=== PATIENT | male | born 1930 | race Caucasian/White ===

== ENCOUNTER 2016-05-29 13:55 | Inpatient (IN) | payer MEDICARE, OTHER ==
[2016-05-29] MEDS ORDERED: SODIUM CHLORIDE 0.9% 1,000 ML IV STA ×2 (14:06)
--- NOTE | 2016-05-29 14:21 | ED ---
General Adult HPI - General Chief complaint: Altered Mental Status Stated complaint: confusion Time Seen by Provider: 05/29/16 14:06 Source: family Mode of arrival: wheelchair Limitations: altered mental status - Related Data Home Medications Medication Instructions Recorded Confirmed Donepezil [Aricept] 5 mg PO HS 02/03/16 05/29/16 Ergocalciferol (Vitamin D2) 50,000 unit PO APARICIO 02/03/16 05/29/16 [Drisdol] Levothyroxine Sodium [Levo-T] 75 mcg PO DAILY 02/03/16 05/29/16 HYDROcodone/APAP 5-325MG [[place] 1 tab PO Q6HR PRN 02/22/16 05/29/16 5-325] Hydroxyurea [Hydrea] 500 mg PO W/SUPPER 02/22/16 05/29/16 Lisinopril [Zestril] 2.5 mg PO DAILY 02/22/16 05/29/16 Warfarin Sodium 6 mg PO MOTUWETHFRSA 02/22/16 05/29/16 Furosemide [Lasix] 40 mg PO DAILY 03/27/16 05/29/16 Potassium Chloride ER [K-Dur 20] 20 meq PO DAILY 03/27/16 05/29/16 Albuterol Nebulized [Ventolin 2.5 mg INHALATION RT-QID 05/29/16 05/29/16 Nebulized] Baclofen [Lioresal] 10 mg PO BID PRN 05/29/16 05/29/16 Budesonide [Pulmicort] 1 mg INHALATION RT-BID 05/29/16 05/29/16 Carvedilol [Coreg] 6.25 mg PO BID 05/29/16 05/29/16 Febuxostat [Uloric] 40 mg PO DAILY 05/29/16 05/29/16 Mirtazapine [Remeron] 15 mg PO HS 05/29/16 05/29/16 SILVER sulfADIAZINE CREAM 1 applic TOPICAL BID PRN 05/29/16 05/29/16 [Silvadene Cream] traMADol HCL [Ultram] 50 mg PO TID PRN 05/29/16 05/29/16 Previous Rx's Medication Instructions Recorded Famotidine [Pepcid] 20 mg PO DAILY #20 tablet 02/25/16 Allergies Allergy/AdvReac Type Severity Reaction Status Date / Time No Known Allergies Allergy Verified 05/29/16 14:52 Review of Systems ROS Statement: Those systems with pertinent positive or pertinent negative responses have been documented in the HPI. ROS Other: All systems not noted in ROS Statement are negative. Past Medical History Past Medical History: Atrial Fibrillation, Blood Disorder, Heart Failure, Hypertension, Myocardial Infarction ([place]), Thyroid Disorder Additional Past Medical History / Comment(s): blood disorder leukocytosis undefined myelomo ascbestos elevated wbc , patient has one kidney, prostate CA and removal of prostate, testicle removal Last Myocardial Infarction Date:: 1994 History of Any Multi-Drug Resistant Organisms: None Reported Additional Past Surgical History / Comment(s): nephrectomy thyroidectomy Past Anesthesia/Blood Transfusion Reactions: No Reported Reaction Past Psychological History: No Psychological Hx Reported Smoking Status: Never smoker Past Alcohol Use History: None Reported Additional Past Alcohol Use History / Comment(s): Occasionally smokes a cigar. Drinks alcohol on occasion. Past Drug Use History: None Reported - Past Family History Mother Family Medical History: Cancer Additional Family Medical History / Comment(s): Breast CA Father Family Medical History: Coronary Artery Disease (CAD) Sister(s) Family Medical History: Blood Disorder, Cancer Additional Family Medical History / Comment(s): Breast CA and blood CA General Exam Limitations: altered mental status Course Vital Signs 05/29/16 05/29/16 05/29/16 14:01 14:14 15:26 Temperature 97.4 F L Pulse Rate 77 72 72 Respiratory 20 28 H 20 Rate Blood Pressure 151/71 120/82 O2 Sat by Pulse 94 L 100 100 Oximetry 05/29/16 05/29/16 05/29/16 15:27 15:33 15:55 Temperature Pulse Rate 74 74 80 Respiratory Rate Blood Pressure O2 Sat by Pulse Oximetry EKG Findings - EKG Comments: EKG Findings:: EKG shows undetermined rhythm rate of 74, QRS raking, QTC 463 Medical Decision Making - Medical Decision Making 86 now ER for evaluation of weakness altered mental status, patient with probable UTI will treated with appropriate antibiotics, complicated fluid situation with both CHF and renal failure and dehydration, patient will be admitted for cardiac evaluation - Lab Data Result diagrams: 05/29/16 14:35 05/29/16 14:35 Lab Results 05/29/16 05/29/16 05/29/16 Range/Units 14:35 14:35 14:35 WBC 42.3 H* (3.8-10.6) k/uL RBC 2.19 L (4.30-5.90) m/uL Hgb 8.5 L (13.0-17.5) gm/dL Hct 27.5 L (39.0-53.0) % MCV 125.9 H (80.0-100.0) fL MCH 38.7 H (25.0-35.0) pg MCHC 30.7 L (31.0-37.0) g/dL RDW 18.1 H (11.5-15.5) % Plt Count 136 L (150-450) k/uL Neutrophils % (Manual) 73.0 % Band Neutrophils % 15.5 % Lymphocytes % (Manual) 3.5 % Monocytes % (Manual) 8.0 % Neutrophils # (Manual) 37.4 H (1.3-7.7) k/uL Lymphocytes # (Manual) 1.5 (1.0-4.8) k/uL Monocytes # (Manual) 3.4 H (0-1.0) k/uL Nucleated RBCs 0 (0-0) /100 WBC Manual Slide Review Performed Hypochromasia Slight Anisocytosis Slight Macrocytosis Marked PT (9.0-12.0) sec INR (<1.1) APTT (22.0-30.0) sec Sodium 144 (137-145) mmol/L Potassium 4.7 (3.5-5.1) mmol/L Chloride 110 H (98-107) mmol/L Carbon Dioxide 22 (22-30) mmol/L Anion Gap 12 mmol/L BUN 26 H (9-20) mg/dL Creatinine 2.20 H (0.66-1.25) mg/dL Est GFR (MDRD) Af Amer 35 (>60 ml/min/1.73 sqM) Est GFR (MDRD) Non-Af 29 (>60 ml/min/1.73 sqM) Glucose 99 (74-99) mg/dL Calcium 8.9 (8.4-10.2) mg/dL Phosphorus 4.5 (2.5-4.5) mg/dL Magnesium 1.7 (1.6-2.3) mg/dL Total Bilirubin 0.7 (0.2-1.3) mg/dL AST 15 L (17-59) U/L ALT 18 L (21-72) U/L Alkaline Phosphatase 120 (38-126) U/L Total Creatine Kinase <20 L (55-170) U/L CK-MB (CK-2) 0.5 (0.0-2.4) ng/mL CK-MB (CK-2) Rel Index 0.0 Troponin I 0.012 (0.000-0.034) ng/mL NT-Pro-B Natriuret Pep pg/mL Total Protein 6.2 L (6.3-8.2) g/dL Albumin 3.5 (3.5-5.0) g/dL Urine Color Urine Appearance (Clear) Urine pH (5.0-8.0) Ur Specific [place] (1.001-1.035) Urine Protein (Negative) Urine Glucose (UA) (Negative) Urine Ketones (Negative) Urine Blood (Negative) Urine Nitrate (Negative) Urine Bilirubin (Negative) Urine Urobilinogen (<2.0) mg/dL Ur Leukocyte Esterase (Negative) Urine RBC (0-5) /hpf Urine WBC (0-5) /hpf Amorphous Sediment (None) /hpf Hyaline Casts (0-2) /lpf Urine Mucus (None) /hpf Influenza Type A RNA (Not Detectd) Influenza Type B (PCR) (Not Detectd) 05/29/16 05/29/16 05/29/16 Range/Units 14:35 14:35 14:35 WBC (3.8-10.6) k/uL RBC (4.30-5.90) m/uL Hgb (13.0-17.5) gm/dL Hct (39.0-53.0) % MCV (80.0-100.0) fL MCH (25.0-35.0) pg MCHC (31.0-37.0) g/dL RDW (11.5-15.5) % Plt Count (150-450) k/uL Neutrophils % (Manual) % Band Neutrophils % % Lymphocytes % (Manual) % Monocytes % (Manual) % Neutrophils # (Manual) (1.3-7.7) k/uL Lymphocytes # (Manual) (1.0-4.8) k/uL Monocytes # (Manual) (0-1.0) k/uL Nucleated RBCs (0-0) /100 WBC Manual Slide Review Hypochromasia Anisocytosis Macrocytosis PT 19.7 H (9.0-12.0) sec INR 2.0 (<1.1) APTT 36.6 H (22.0-30.0) sec Sodium (137-145) mmol/L Potassium (3.5-5.1) mmol/L Chloride (98-107) mmol/L Carbon Dioxide (22-30) mmol/L Anion Gap mmol/L BUN (9-20) mg/dL Creatinine (0.66-1.25) mg/dL Est GFR (MDRD) Af Amer (>60 ml/min/1.73 sqM) Est GFR (MDRD) Non-Af (>60 ml/min/1.73 sqM) Glucose (74-99) mg/dL Calcium (8.4-10.2) mg/dL Phosphorus (2.5-4.5) mg/dL Magnesium (1.6-2.3) mg/dL Total Bilirubin (0.2-1.3) mg/dL AST (17-59) U/L ALT (21-72) U/L Alkaline Phosphatase (38-126) U/L Total Creatine Kinase (55-170) U/L CK-MB (CK-2) (0.0-2.4) ng/mL CK-MB (CK-2) Rel Index Troponin I (0.000-0.034) ng/mL NT-Pro-B Natriuret Pep 44737 pg/mL Total Protein (6.3-8.2) g/dL Albumin (3.5-5.0) g/dL Urine Color Urine Appearance (Clear) Urine pH (5.0-8.0) Ur Specific [place] (1.001-1.035) Urine Protein (Negative) Urine Glucose (UA) (Negative) Urine Ketones (Negative) Urine Blood (Negative) Urine Nitrate (Negative) Urine Bilirubin (Negative) Urine Urobilinogen (<2.0) mg/dL Ur Leukocyte Esterase (Negative) Urine RBC (0-5) /hpf Urine WBC (0-5) /hpf Amorphous Sediment (None) /hpf Hyaline Casts (0-2) /lpf Urine Mucus (None) /hpf Influenza Type A RNA Not Detected (Not Detectd) Influenza Type B (PCR) Not Detected (Not Detectd) 05/29/16 Range/Units 15:40 WBC (3.8-10.6) k/uL RBC (4.30-5.90) m/uL Hgb (13.0-17.5) gm/dL Hct (39.0-53.0) % MCV (80.0-100.0) fL MCH (25.0-35.0) pg MCHC (31.0-37.0) g/dL RDW (11.5-15.5) % Plt Count (150-450) k/uL Neutrophils % (Manual) % Band Neutrophils % % Lymphocytes % (Manual) % Monocytes % (Manual) % Neutrophils # (Manual) (1.3-7.7) k/uL Lymphocytes # (Manual) (1.0-4.8) k/uL Monocytes # (Manual) (0-1.0) k/uL Nucleated RBCs (0-0) /100 WBC Manual Slide Review Hypochromasia Anisocytosis Macrocytosis PT (9.0-12.0) sec INR (<1.1) APTT (22.0-30.0) sec Sodium (137-145) mmol/L Potassium (3.5-5.1) mmol/L Chloride (98-107) mmol/L Carbon Dioxide (22-30) mmol/L Anion Gap mmol/L BUN (9-20) mg/dL Creatinine (0.66-1.25) mg/dL Est GFR (MDRD) Af Amer (>60 ml/min/1.73 sqM) Est GFR (MDRD) Non-Af (>60 ml/min/1.73 sqM) Glucose (74-99) mg/dL Calcium (8.4-10.2) mg/dL Phosphorus (2.5-4.5) mg/dL Magnesium (1.6-2.3) mg/dL Total Bilirubin (0.2-1.3) mg/dL AST (17-59) U/L ALT (21-72) U/L Alkaline Phosphatase (38-126) U/L Total Creatine Kinase (55-170) U/L CK-MB (CK-2) (0.0-2.4) ng/mL CK-MB (CK-2) Rel Index Troponin I (0.000-0.034) ng/mL NT-Pro-B Natriuret Pep pg/mL Total Protein (6.3-8.2) g/dL Albumin (3.5-5.0) g/dL Urine Color Yellow Urine Appearance Cloudy (Clear) Urine pH 5.5 (5.0-8.0) Ur Specific [place] 1.009 (1.001-1.035) Urine Protein 2+ H (Negative) Urine Glucose (UA) Negative (Negative) Urine Ketones Negative (Negative) Urine Blood Large H (Negative) Urine Nitrate Negative (Negative) Urine Bilirubin Negative (Negative) Urine Urobilinogen <2.0 (<2.0) mg/dL Ur Leukocyte Esterase Trace H (Negative) Urine RBC >182 H (0-5) /hpf Urine WBC 18 H (0-5) /hpf Amorphous Sediment Occasional H (None) /hpf Hyaline Casts 16 H (0-2) /lpf Urine Mucus Rare H (None) /hpf Influenza Type A RNA (Not Detectd) Influenza Type B (PCR) (Not Detectd) - Radiology Data Radiology results: report reviewed (Chest x-ray 2 view does show CHF), image reviewed Disposition Clinical Impression: Altered mental status, Delirium due to general medical condition, UTI (urinary tract infection), Dehydration, ARF (acute renal failure), CHF (congestive heart failure) Disposition: ADMITTED IP TO [facility] Condition: Fair Referrals: Loren Bailey MD [Primary Care Provider] - 1-2 days
[2016-05-29] MEDS ORDERED: ALBUTEROL NEBULIZED 2.5 MG/3 ML INHALATION STA (14:57)
[2016-05-29] MEDS ORDERED: IPRATROPIUM 0.5 MG/2.5 ML NEBU INHALATION STA (14:57)
[2016-05-29 14:59] LABS: Anisocytosis Slight; CH 38.7; HCT 27.5 % (39.0-53.0); HDW 2.78; HGB 8.5 gm/dL (13.0-17.5); Hypochromasia Slight; Immature Gran Flag Marked; MCH 38.7 pg (25.0-35.0); MCHC 30.7 g/dL (31.0-37.0); MCV 125.9 fL (80.0-100.0); Macrocytosis Marked; Mean Platelet Volume 7.9; RBC 2.19 m/uL (4.30-5.90); RDW 18.1 % (11.5-15.5)
[2016-05-29 15:01] LABS: WBC 42.3 k/uL (3.8-10.6)
[2016-05-29 15:11] LABS: Partial Thromboplastin Time 36.6 sec (22.0-30.0); Prothrombin Time 19.7 sec (9.0-12.0)
[2016-05-29 15:12] LABS: Calcium 8.9 mg/dL (8.4-10.2); Magnesium 1.7 mg/dL (1.6-2.3); Phosphorous 4.5 mg/dL (2.5-4.5); Potassium 4.7 mmol/L (3.5-5.1); Total Bilirubin 0.7 mg/dL (0.2-1.3); Total Protein 6.2 g/dL (6.3-8.2)
[2016-05-29 15:14] LABS: Creatine Kinase <20 U/L (55-170)
[2016-05-29 15:16] LABS: Add Differential Manual Differential
[2016-05-29 15:20] LABS: Band Neutrophils % 15.5 %; Manual Review Performed; Nucleated Red Blood Cells 0 /100 WBC (0-0); Total Cells Counted 200
[2016-05-29 15:27] LABS: Creatine Kinase MB 0.5 ng/mL (0.0-2.4); Troponin I 0.012 ng/mL (0.000-0.034)
--- NOTE | 2016-05-29 15:34 | XR ---
EXAMINATION TYPE: XR chest 2V DATE OF EXAM: 05/29/2016 3:12 PM COMPARISON: 02/22/2016 HISTORY: 86-year-old male with weakness and shortness of breath TECHNIQUE: AP and lateral views FINDINGS: Heart is borderline enlarged. Atherosclerotic arch calcifications. Extensive pleural-based calcificat ions are noted on both sides. Possible trace effusions. No machelle consolidation seen. IMPRESSION: Asbestos related pleural disease. Possible trace effusions. Correlate to exclude mild CHF.
[2016-05-29 15:51] LABS: Amorphous Sediment,Urine Occasional /hpf; Appearance,Urine Cloudy (Clear); Bilirubin,Urine Negative (Negative); Glucose,Urine (UA) Negative (Negative); Ketones,Urine Negative (Negative); Leukocyte Esterase,Urine Trace (Negative); Mucus,Urine Rare /hpf; Nitrite,Urine Negative (Negative); PH, Urine 5.5 (5.0-8.0); Particle Count 10556; Protein,Urine 2+ (Negative); RBC,Urine >182 /hpf (0-5); Specific Gravity,Urine 1.009 (1.001-1.035); UA Billing (MACRO vs. MICRO) MICRO; Urobilinogen,Urine <2.0 mg/dL (<2.0); WBC,Urine 18 /hpf (0-5)
[2016-05-29] MEDS ORDERED: SODIUM CHLORIDE 0.9% 1,000 ML IV SCH (16:30)
[2016-05-29] MEDS ORDERED: BACLOFEN 10 MG TAB PO PRN (19:52)
[2016-05-29] MEDS ORDERED: traMADol 50 MG TAB PO PRN (19:52)
[2016-05-29] MEDS ORDERED: HYDROcodone/APAP 5-325MG 1 EACH TAB PO PRN (19:52)
[2016-05-29] MEDS: ALBUTEROL NEBULIZED 2.5 MG/3 ML INHALATION SCH (20:17)
[2016-05-29] MEDS: BUDESONIDE 1 MG/2 ML NEBU INHALATION SCH (20:17)
[2016-05-29] MEDS: MIRTAZAPINE 15 MG TAB PO SCH ×2 (21:24→22:09)
[2016-05-29] MEDS: WARFARIN 3 MG TAB PO SCH ×2 (21:24→22:08)
[2016-05-29] MEDS: DONEPEZIL 5 MG TAB PO SCH ×2 (21:24→22:08)
[2016-05-29 22:01] LABS: Glucose,Whole Blood 99 mg/dL (75-99)
--- NOTE | 2016-05-29 22:32 | CT ---
EXAMINATION TYPE: CT brain wo con DATE OF EXAM: 05/29/2016 10:27 PM COMPARISON: 02/22/2016 HISTORY: Decreased responsiveness. CT DLP: 892.1 mGycm Automated exposure control for dose reduction was used. FINDINGS: There is cerebral cortical atrophy. There is no mass effect nor midline shift. There is no sign of in tracranial hemorrhage. The calvarium is intact. IMPRESSION: Cerebral atrophy. No acute intracranial abnormality. No change compared to old exam.
[2016-05-30] MEDS: LEVOTHYROXINE 75 MCG TAB PO SCH (05:57)
[2016-05-30] MEDS: BUDESONIDE 1 MG/2 ML NEBU INHALATION SCH ×2 (07:20→21:25)
[2016-05-30] MEDS: ALBUTEROL NEBULIZED 2.5 MG/3 ML INHALATION SCH ×4 (07:20→21:25)
[2016-05-30 07:56] LABS: INR 2.3 (<1.1); Prothrombin Time 22.1 sec (9.0-12.0)
[2016-05-30 08:04] LABS: Anisocytosis Slight; CH 38.2; CHCM 30.3; HCT 25.9 % (39.0-53.0); HDW 2.72; Hypochromasia Moderate; Immature Gran Flag Marked; MCHC 30.7 g/dL (31.0-37.0); Macrocytosis Marked; Mean Platelet Volume 7.5; RBC 2.04 m/uL (4.30-5.90); RDW 17.4 % (11.5-15.5); WBC (Perox) 44.21
[2016-05-30 08:09] LABS: WBC 42.7 k/uL (3.8-10.6)
[2016-05-30 08:25] LABS: Calcium 8.7 mg/dL (8.4-10.2); Potassium 4.7 mmol/L (3.5-5.1); Total Bilirubin 0.7 mg/dL (0.2-1.3); Total Protein 6.1 g/dL (6.3-8.2)
[2016-05-30 08:50] LABS: Add Differential Manual Differential
[2016-05-30 08:52] LABS: Manual Review Performed; Nucleated Red Blood Cells 0 /100 WBC (0-0); Total Cells Counted 100; Toxic Granulation Present; Toxic Vacuolation Present
[2016-05-30 08:53] LABS: Tear Drop Cells Present
[2016-05-30] MEDS ORDERED: ENOXAPARIN 40 MG/0.4 ML SYRINGE SQ SCH (09:00)
[2016-05-30] MEDS: ALLOPURINOL 100 MG TAB PO SCH (09:57)
[2016-05-30] MEDS: FAMOTIDINE 20 MG TAB PO SCH (09:57)
[2016-05-30] MEDS: CARVEDILOL 6.25 MG TAB PO SCH ×2 (09:57→17:22)
[2016-05-30] MEDS: FUROSEMIDE 10 MG/ML 4 ML VIAL IV SCH (09:57)
[2016-05-30] MEDS: LISINOPRIL 5 MG TAB PO SCH (09:58)
[2016-05-30] MEDS: POTASSIUM CHLORIDE ER 20 MEQ TAB.ER PO SCH (09:58)
[2016-05-30] MEDS ORDERED: SODIUM CHLORIDE 0.9% 1,000 ML IV ONE (10:50)
--- NOTE | 2016-05-30 12:41 | P.HPIM ---
History of Present Illness H&P Date: 05/30/16 Chief Complaint: Mental status changes This is an 86-year-old gentleman patient of Dr. Bailey and Dr. Francisco. His heeler is Dr. Arevalo. He has underlying history offchronic myeloproliferative disorder, hypothyroidism, prostate cancer, chronic diastolic heart failure, chronic atrial fibrillation, hypertension, asbestosis, congenital single kidney, dementia. Patient was in his usual state of health until a couple days ago when he started having mental status changes. He does have underlying dementia and is always confused and needs direction to complete simple tasks but this worsened. He also was not eating very much for couple of days. His denies that he had fever, chills, nausea, vomiting or diarrhea. Patient and his reside at [facility] and have a nurse visit weekly , after this week's visit, the nurse recommended that the patient come into [facility] to be evaluated. Patient was found to have white count of 42.3, hemoglobin 8.5, platelet count 136, BUN 26 and creatinine 2.2. It appears his baseline creatinine is 1.5 . INR 2.0, chloride 110. Urinalysis revealed protein 2+, blood large, leukoesterase trace, RBCs greater than 182, WBC 18. Influenza testing A&B were negative. CAT scan of the brain showed cerebral atrophy with no acute intracranial abnormality. Chest x-ray shows asbestos-related pleural disease with possible trace effusions. Correlate to exclude mild CHF. Patient was admitted to the [facility] floor and started on ceftriaxone. Urine culture and blood culture obtained. Consult with oncology and cardiology. Patient resides at [facility] with his . She plans to take him home at the time of discharge. Review of Systems Constitutional: Reports anorexia, Reports poor appetite, Denies chills, Denies fever Gastrointestinal: Reports loss of appetite, Denies abdominal pain, Denies diarrhea, Denies nausea, Denies vomiting Genitourinary: Reports incontinence Integumentary: Denies wounds Neurological: Reports change in mentation, Reports confusion Past Medical History Past Medical History: Atrial Fibrillation, Blood Disorder, Heart Failure, Hypertension, Myocardial Infarction ([place]), Thyroid Disorder Additional Past Medical History / Comment(s): Chronic myeloproliferative disorder, asbestosis, congenital single kidney, prostate cancer, chronic diastolic heart failure, hypothyroidism Last Myocardial Infarction Date:: 1994 History of Any Multi-Drug Resistant Organisms: None Reported Past Surgical History: Adenoidectomy, Heart Catheterization With Stent, Tonsillectomy Additional Past Surgical History / Comment(s): turp, thyroidectomy , prostatectomy, colonoscopy/polypectomy Past Anesthesia/Blood Transfusion Reactions: No Reported Reaction Additional Past Anesthesia/Blood Transfusion Reaction / Comment(s): blood transfusion-no reaction Date of Last Stent Placement:: unk Past Psychological History: Depression Additional Psychological History / Comment(s): PT LIVES AT [facility] WITH HIS CRISTIAN. RECEIVED HOME CARE SERVICES [facility] Smoking Status: Former smoker Past Alcohol Use History: Occasional Additional Past Alcohol Use History / Comment(s): in past Occasionally smokes a cigar and occ drink- none now. Past Drug Use History: None Reported - Past Family History Mother Family Medical History: Cancer Additional Family Medical History / Comment(s): Breast CA Father Family Medical History: Coronary Artery Disease (CAD) Sister(s) Family Medical History: Blood Disorder, Cancer Additional Family Medical History / Comment(s): Breast CA and blood CA Medications and Allergies Home Medications Medication Instructions Recorded Confirmed Type Donepezil [Aricept] 5 mg PO HS 02/03/16 05/29/16 History Ergocalciferol (Vitamin D2) 50,000 unit PO APARICIO 02/03/16 05/29/16 History [Drisdol] Levothyroxine Sodium [Levo-T] 75 mcg PO DAILY 02/03/16 05/29/16 History HYDROcodone/APAP 5-325MG [[place] 1 tab PO Q6HR PRN 02/22/16 05/29/16 History 5-325] Hydroxyurea [Hydrea] 500 mg PO W/SUPPER 02/22/16 05/29/16 History Lisinopril [Zestril] 2.5 mg PO DAILY 02/22/16 05/29/16 History Warfarin Sodium 6 mg PO MOTUWETHFRSA 02/22/16 05/29/16 History Furosemide [Lasix] 40 mg PO DAILY 03/27/16 05/29/16 History Potassium Chloride ER [K-Dur 20] 20 meq PO DAILY 03/27/16 05/29/16 History Albuterol Nebulized [Ventolin 2.5 mg INHALATION RT-QID 05/29/16 05/29/16 History Nebulized] Baclofen [Lioresal] 10 mg PO BID PRN 05/29/16 05/29/16 History Budesonide [Pulmicort] 1 mg INHALATION RT-BID 05/29/16 05/29/16 History Carvedilol [Coreg] 6.25 mg PO BID 05/29/16 05/29/16 History Febuxostat [Uloric] 40 mg PO DAILY 05/29/16 05/29/16 History Mirtazapine [Remeron] 15 mg PO HS 05/29/16 05/29/16 History SILVER sulfADIAZINE CREAM 1 applic TOPICAL BID PRN 05/29/16 05/29/16 History [Silvadene Cream] traMADol HCL [Ultram] 50 mg PO TID PRN 05/29/16 05/29/16 History Allergies Allergy/AdvReac Type Severity Reaction Status Date / Time No Known Allergies Allergy Verified 05/29/16 14:52 Physical Exam Vitals: Vital Signs Temp Pulse Pulse Resp BP BP BP 05/30/16 08:00 97.7 F 87 18 160/88 05/30/16 07:44 80 05/30/16 07:37 101/59 05/30/16 07:20 76 05/30/16 00:20 84 107/53 05/30/16 00:00 84 05/29/16 22:47 97.0 F L 84 16 152/70 05/29/16 22:45 98.3 F 76 170/74 05/29/16 22:35 199/86 05/29/16 20:29 70 05/29/16 20:19 65 05/29/16 17:10 70 20 106/52 05/29/16 16:29 97.1 F L 79 20 95/50 Pulse Ox 05/30/16 08:00 91 L 05/30/16 07:44 05/30/16 07:37 05/30/16 07:20 05/30/16 00:20 96 05/30/16 00:00 05/29/16 22:47 99 05/29/16 22:45 96 05/29/16 22:35 05/29/16 20:29 05/29/16 20:19 05/29/16 17:10 97 05/29/16 16:29 99 Intake and Output 0205/30/16 05/30/16 22:59 06:59 14:59 Intake Total 590 Balance 590 Intake: Oral 590 Other: Voiding Method Toilet # Voids 1 2 Weight 97.5 kg General appearance: cooperative, no acute distress, obese - EENT Eyes: Reports anicteric sclerae, Reports EOMI, Reports PERRLA, Reports normal apperance, Denies abnormal pupil, Denies disc margins sharp, Denies edentulous, Denies fundus normal, Denies photophobia, Denies dentition normal, Denies poor dentition, Denies ptosis, Denies scleral icterus ENT: Reports NA/AT, Reports normal oropharynx, Denies hard of hearing, Denies hearing grossly normal, Denies other, Denies pharyngeal erythema, Denies thrush , Denies tonsillar exudates, Denies tonsillar swelling - Respiratory Respiratory: bilateral: rales, wheezing, negative: CTA, diminished, dullness - Cardiovascular Rhythm: regular Heart sounds: normal: S1, S2 Abnormal Heart Sounds: Reports systolic murmur - Gastrointestinal General gastrointestinal: Reports normal bowel sounds, Reports soft, Denies absent bowel sounds, Denies decreased bowel sounds, Denies distended, Denies hepatomegaly, Denies hyperactive bowel sounds, Denies organomegaly, Denies rigid , Denies scaphoid, Denies splenomegaly, Denies tenderness, Denies umbilical hernia, Denies ventral hernia - Integumentary Integumentary: Reports normal, Reports normal turgor - Neurologic Neurologic: CNII-XII intact - Musculoskeletal Musculoskeletal: Reports generalized weakness, Reports strength equal bilaterally - Psychiatric Psychiatric: Reports A&O x's 1 with confusion but able to follow simple commands , No appropriate affect, No intact judgment & insight Results CBC & Chem 7: 05/30/16 07:37 05/30/16 07:37 Labs: Abnormal Lab Results - Last 24 Hours (Table) 05/30/16 05/30/16 05/30/16 Range/Units 07:37 07:37 07:37 WBC 42.7 H* (3.8-10.6) k/uL RBC 2.04 L (4.30-5.90) m/uL Hgb 8.0 L (13.0-17.5) gm/dL Hct 25.9 L (39.0-53.0) % MCV 127.0 H (80.0-100.0) fL MCH 39.0 H (25.0-35.0) pg MCHC 30.7 L (31.0-37.0) g/dL RDW 17.4 H (11.5-15.5) % Plt Count 127 L (150-450) k/uL Neutrophils # (Manual) 37.1 H (1.3-7.7) k/uL Monocytes # (Manual) 3.0 H (0-1.0) k/uL PT (9.0-12.0) sec Sodium 148 H (137-145) mmol/L Chloride 113 H (98-107) mmol/L Carbon Dioxide 21 L (22-30) mmol/L BUN 25 H (9-20) mg/dL Creatinine 2.23 H (0.66-1.25) mg/dL AST 15 L (17-59) U/L Ammonia 30 H (<30) umol/L Total Protein 6.1 L (6.3-8.2) g/dL Albumin 3.3 L (3.5-5.0) g/dL 05/30/16 Range/Units 07:43 WBC (3.8-10.6) k/uL RBC (4.30-5.90) m/uL Hgb (13.0-17.5) gm/dL Hct (39.0-53.0) % MCV (80.0-100.0) fL MCH (25.0-35.0) pg MCHC (31.0-37.0) g/dL RDW (11.5-15.5) % Plt Count (150-450) k/uL Neutrophils # (Manual) (1.3-7.7) k/uL Monocytes # (Manual) (0-1.0) k/uL PT 22.1 H (9.0-12.0) sec Sodium (137-145) mmol/L Chloride (98-107) mmol/L Carbon Dioxide (22-30) mmol/L BUN (9-20) mg/dL Creatinine (0.66-1.25) mg/dL AST (17-59) U/L Ammonia (<30) umol/L Total Protein (6.3-8.2) g/dL Albumin (3.5-5.0) g/dL Thrombosis Risk Factor Assmnt - DVT/VTE Prophylaxis DVT/VTE Prophylaxis: Pharmacologic Prophylaxis ordered - Choose All That Apply Any of the Below Risk Factors Present?: Yes Each Factor Represents 1 point: Heart failure (<1month), Obesity (BMI >25) Other Risk Factors: Yes Each Risk Factor Represents 2 Points: Malignancy Each Risk Factor Represents 3 Points: Age 75 years or older Other congenital or acquired thrombophilia - If yes, enter type in comment: No Thrombosis Risk Factor Assessment Total Risk Factor Score: 7 Thrombosis Risk Factor Assessment Level: High Risk Assessment and Plan Plan: 1. Metabolic encephalopathy secondary to urinary tract infection and sepsis with history of mild bladder incontinence. Continue ceftriaxone. Urine culture and blood culture in process 2. Acute kidney injury with chronic kidney disease stage III and congenital single kidney. Patient will be given 1 L of IV fluid bolus and IV fluids will be discontinued due to history of heart failure. Repeat labs in the morning 3. Myeloproliferative disorder. Continue Hydrea 500 mg daily. Consult with oncology. 4. Chronic atrial fibrillation on long-term anticoagulation with Coumadin, Coreg, lisinopril. 5. Chronic diastolic heart failure. Continue Lasix 40 mg IV push. Cardiology consult. 6. Hypertension on lisinopril 5 mg daily Coreg 6.25 mg twice a day 7. Hypothyroidism on levothyroxine 75 g daily 8. Mild dementia on Aricept 5 mg daily 9. Overactive bladder 10. Hyperuricemia. Continue allopurinol. 11. Asbestosis with pleural plaques 12. Patient only has unilateral kidney 13. DVT prophylaxis patient's on maintenance Coumadin for A. fib 14. Leukocytosis most likely secondary to hematology disorder and sepsis. 15. Splenomegaly with last CT in December 2015 showing 15 cm spleen 16. History of prostate cancer with history of prostatectomy and orchiectomy 17. GI prophylaxis Patient will be admitted to the hospital for a minimum of 2 night stay. Discharge plan: Return to [facility] with homecare Impression and plan of care have been directed as dictated by the signing physician. Tran Jack nurse practitioner acting as scribe for signing physician. Time with Patient: Greater than 30
[2016-05-30] MEDS: WARFARIN 3 MG TAB PO SCH (17:22)
[2016-05-30] MEDS ORDERED: HYDROXYUREA 500 MG CAP PO SCH (17:30)
--- NOTE | 2016-05-30 18:57 | P.CONS ---
History of Present Illness - Reason for Consult Consult date: 05/30/16 Myeloproliferative disorder, on Hydrea - History of Present Illness The patient is an 86-year-old gentleman, well known to myself. He had presented in 2016 with progressive increase in his white blood cells since early spring. This was accompanied with drop in his hemoglobin and platelets. This led to a bone marrow aspiration biopsy, which was positive for a myeloproliferative disorder. However all characteristic gene markers were negative and therefore this disorder could not be further classified. Possibilities included chronic neutrophilic leukemia, as well as [place] negative CML among others. The patient was also seen in [facility]. He was started on Hydrea. Initially he did continue to require transfusion support. However as he has continued on Hydrea his white blood cell count has slowly come down while hemoglobin has improved into the 8 range. He is being followed closely in the Hospital , with plans to adjust the Hydrea slowly, so as to optimize his white cells and hemoglobin. The patient has multiple medical problems including atrial fibrillation, diastolic congestive heart failure, as well as dementia which has been slowly progressive. In 2016, he did have admissions to the hospital because of CHF. The patient was brought into the emergency room this time, as over the past few days he has been more confused. He was also increasingly lethargic with no appetite. No fever, chills or obvious bleeding noted. In the emergency room, CT scan of the brain without contrast was done which was negative for evidence of acute bleed or stroke. Significant atrophy was noted which is baseline for him. Chest x-ray likewise, did not show any findings of acute infection. His urinalysis however was significantly abnormal. The patient was therefore admitted and started on antibiotics. His CBC revealed a hemoglobin in the 8-9 range, with white cells in the 40, 000 range. Hemoglobin is actually stable compared to his most recent office labs. WBC is somewhat elevated, most likely due to UTI and dehydration. Review of Systems Constitutional: Reports fatigue, Reports lethargy, Reports poor appetite, Reports weakness Eyes: denies blurred vision, denies pain Ears: bilateral: decreased hearing, deny: ear discharge, earache, tinnitus Ears, nose, mouth and throat: Denies headache, Denies sore throat Cardiovascular: Reports as per HPI, Reports dyspnea on exertion, Reports orthopnea Respiratory: Reports dyspnea Gastrointestinal: Denies abdominal pain, Denies diarrhea, Denies nausea, Denies vomiting Genitourinary: Reports urinary frequency Musculoskeletal: Reports muscle weakness Integumentary: Denies pruritus, Denies rash Neurological: Reports change in mentation, Reports confusion, Reports memory loss Psychiatric: Reports confusion, Reports memory loss Endocrine: Reports fatigue Hematologic/Lymphatic: Reports as per HPI Past Medical History Past Medical History: Atrial Fibrillation, Blood Disorder, Heart Failure, Hypertension, Myocardial Infarction (DE), Thyroid Disorder Additional Past Medical History / Comment(s): Chronic myeloproliferative disorder, asbestosis, congenital single kidney, prostate cancer, chronic diastolic heart failure, hypothyroidism Last Myocardial Infarction Date:: 1994 History of Any Multi-Drug Resistant Organisms: None Reported Past Surgical History: Adenoidectomy, Heart Catheterization With Stent, Tonsillectomy Additional Past Surgical History / Comment(s): turp, thyroidectomy , prostatectomy, colonoscopy/polypectomy Past Anesthesia/Blood Transfusion Reactions: No Reported Reaction Additional Past Anesthesia/Blood Transfusion Reaction / Comm: blood transfusion- no reaction Date of Last Stent Placement:: unk Past Psychological History: Depression Additional Psychological History / Comment(s): PT LIVES AT [facility] WITH HIS CRISTIAN. RECEIVED HOME CARE SERVICES [facility] Smoking Status: Former smoker Past Alcohol Use History: Occasional Additional Past Alcohol Use History / Comment(s): in past Occasionally smokes a cigar and occ drink- none now. Past Drug Use History: None Reported - Past Family History Mother Family Medical History: Cancer Additional Family Medical History / Comment(s): Breast CA Father Family Medical History: Coronary Artery Disease (CAD) Sister(s) Family Medical History: Blood Disorder, Cancer Additional Family Medical History / Comment(s): Breast CA and blood CA Medications and Allergies Home Medications Medication Instructions Recorded Confirmed Type Donepezil [Aricept] 5 mg PO HS 02/03/16 05/29/16 History Ergocalciferol (Vitamin D2) 50,000 unit PO APARICIO 02/03/16 05/29/16 History [Drisdol] Levothyroxine Sodium [Levo-T] 75 mcg PO DAILY 02/03/16 05/29/16 History HYDROcodone/APAP 5-325MG [[place] 1 tab PO Q6HR PRN 02/22/16 05/29/16 History 5-325] Hydroxyurea [Hydrea] 500 mg PO W/SUPPER 02/22/16 05/29/16 History Lisinopril [Zestril] 2.5 mg PO DAILY 02/22/16 05/29/16 History Warfarin Sodium 6 mg PO MOTUWETHFRSA 02/22/16 05/29/16 History Furosemide [Lasix] 40 mg PO DAILY 03/27/16 05/29/16 History Potassium Chloride ER [K-Dur 20] 20 meq PO DAILY 03/27/16 05/29/16 History Albuterol Nebulized [Ventolin 2.5 mg INHALATION RT-QID 05/29/16 05/29/16 History Nebulized] Baclofen [Lioresal] 10 mg PO BID PRN 05/29/16 05/29/16 History Budesonide [Pulmicort] 1 mg INHALATION RT-BID 05/29/16 05/29/16 History Carvedilol [Coreg] 6.25 mg PO BID 05/29/16 05/29/16 History Febuxostat [Uloric] 40 mg PO DAILY 05/29/16 05/29/16 History Mirtazapine [Remeron] 15 mg PO HS 05/29/16 05/29/16 History SILVER sulfADIAZINE CREAM 1 applic TOPICAL BID PRN 05/29/16 05/29/16 History [Silvadene Cream] traMADol HCL [Ultram] 50 mg PO TID PRN 05/29/16 05/29/16 History Allergies Allergy/AdvReac Type Severity Reaction Status Date / Time No Known Allergies Allergy Verified 05/29/16 14:52 Physical Exam Vitals: Vital Signs Temp Pulse Pulse Resp BP BP Pulse Ox 05/30/16 17:18 72 05/30/16 16:59 72 05/30/16 15:00 97.1 F L 89 20 143/73 98 05/30/16 11:16 72 05/30/16 11:03 72 05/30/16 08:00 97.7 F 87 18 160/88 91 L 05/30/16 07:44 80 05/30/16 07:37 101/59 05/30/16 07:20 76 05/30/16 00:20 84 107/53 96 05/30/16 00:00 84 05/29/16 22:47 97.0 F L 84 16 152/70 99 05/29/16 22:45 98.3 F 76 170/74 96 05/29/16 22:35 199/86 05/29/16 20:29 70 05/29/16 20:19 65 Intake and Output 05/30/16 05/30/16 05/30/16 06:59 14:59 22:59 Other: Voiding Method Toilet Toilet # Voids 2 3 # Bowel Movements 1 - Constitutional General appearance: no acute distress - EENT Eyes: EOMI, PERRLA ENT: hard of hearing, normal oropharynx - Neck Neck: no lymphadenopathy Thyroid: bilateral: normal size - Respiratory Respiratory: bilateral: diminished - Cardiovascular Rhythm: irregularly irregular Heart sounds: normal: S1, S2 - Gastrointestinal General gastrointestinal: normal bowel sounds, soft, splenomegaly (About 1 fingerbreadth below costal margin. This is markedly diminished compared to before) - Integumentary Integumentary: normal - Neurologic Neurologic: CNII-XII intact - Musculoskeletal Musculoskeletal: generalized weakness - Psychiatric The patient was confused. He stated he recognized me, but was unable to recall my name. He is also unable to name the hospital, or the month Results CBC & Chem 7: 05/30/16 07:37 05/30/16 07:37 Labs: Abnormal Lab Results - Last 24 Hours (Table) 05/30/16 05/30/16 05/30/16 Range/Units 07:37 07:37 07:37 WBC 42.7 H* (3.8-10.6) k/uL RBC 2.04 L (4.30-5.90) m/uL Hgb 8.0 L (13.0-17.5) gm/dL Hct 25.9 L (39.0-53.0) % MCV 127.0 H (80.0-100.0) fL MCH 39.0 H (25.0-35.0) pg MCHC 30.7 L (31.0-37.0) g/dL RDW 17.4 H (11.5-15.5) % Plt Count 127 L (150-450) k/uL Neutrophils # (Manual) 37.1 H (1.3-7.7) k/uL Monocytes # (Manual) 3.0 H (0-1.0) k/uL PT (9.0-12.0) sec Sodium 148 H (137-145) mmol/L Chloride 113 H (98-107) mmol/L Carbon Dioxide 21 L (22-30) mmol/L BUN 25 H (9-20) mg/dL Creatinine 2.23 H (0.66-1.25) mg/dL AST 15 L (17-59) U/L Ammonia 30 H (<30) umol/L Total Protein 6.1 L (6.3-8.2) g/dL Albumin 3.3 L (3.5-5.0) g/dL 05/30/16 Range/Units 07:43 WBC (3.8-10.6) k/uL RBC (4.30-5.90) m/uL Hgb (13.0-17.5) gm/dL Hct (39.0-53.0) % MCV (80.0-100.0) fL MCH (25.0-35.0) pg MCHC (31.0-37.0) g/dL RDW (11.5-15.5) % Plt Count (150-450) k/uL Neutrophils # (Manual) (1.3-7.7) k/uL Monocytes # (Manual) (0-1.0) k/uL PT 22.1 H (9.0-12.0) sec Sodium (137-145) mmol/L Chloride (98-107) mmol/L Carbon Dioxide (22-30) mmol/L BUN (9-20) mg/dL Creatinine (0.66-1.25) mg/dL AST (17-59) U/L Ammonia (<30) umol/L Total Protein (6.3-8.2) g/dL Albumin (3.5-5.0) g/dL Microbiology - Last 24 Hours (Table) 05/30/16 09:56 Urine Culture - Preliminary Urine,Voided Abdominal x-ray: report reviewed CT Scan - head: report reviewed Assessment and Plan (1) Myeloproliferative disorder Narrative/Plan: The patient has a known myeloproliferative disorder, with history as noted in the history of present illness. This is not classifiable, with CML as well as [place] negative CML being possibilities among others. The patient has been doing reasonably well under the circumstances, with Hydrea. Hemoglobin has improved into the 8+ range and he has not required a transfusion now for some months. He did count has also improved into the 100+ range. In the office white count had dropped into the 20-59942 range. Currently hemoglobin and platelets are at baseline. White blood cell count is somewhat elevated, likely due to UTI and dehydration. As his hemoglobin could fall, due to infection, I will hold Hydrea presently and then resume it once hemoglobin is noted to be stable, and the patient improved Status: Acute (2) UTI (urinary tract infection) Narrative/Plan: At this time this appears to be the more likely cause for his presentation. The patient is somewhat improved in terms of alertness since admission. He remains confused. Motor does have some issues with memory at baseline. Deferred to the admitting service and other consultants for continued treatment of this condition Status: Acute
[2016-05-30] MEDS: MIRTAZAPINE 15 MG TAB PO SCH (20:43)
[2016-05-30] MEDS: DONEPEZIL 5 MG TAB PO SCH (20:43)
[2016-05-31] MEDS: LEVOTHYROXINE 75 MCG TAB PO SCH (06:04)
[2016-05-31 07:52] LABS: Anisocytosis Slight; CH 38.8; CHCM 29.9; HCT 27.4 % (39.0-53.0); HDW 2.77; HGB 8.2 gm/dL (13.0-17.5); Hypochromasia Marked; MCH 39.2 pg (25.0-35.0); MCHC 29.9 g/dL (31.0-37.0); MCV 130.9 fL (80.0-100.0); Macrocytosis Marked; Mean Platelet Volume 8.2; RDW 17.8 % (11.5-15.5)
[2016-05-31 07:53] LABS: INR 2.3 (<1.1); Prothrombin Time 22.5 sec (9.0-12.0)
[2016-05-31] MEDS: LISINOPRIL 5 MG TAB PO SCH (08:19)
[2016-05-31] MEDS: CARVEDILOL 6.25 MG TAB PO SCH ×2 (08:20→17:50)
[2016-05-31] MEDS: POTASSIUM CHLORIDE ER 20 MEQ TAB.ER PO SCH (08:21)
[2016-05-31] MEDS: FAMOTIDINE 20 MG TAB PO SCH (08:22)
[2016-05-31] MEDS: ALLOPURINOL 100 MG TAB PO SCH (08:22)
[2016-05-31] MEDS: FUROSEMIDE 10 MG/ML 4 ML VIAL IV SCH (08:23)
[2016-05-31] MEDS: BUDESONIDE 1 MG/2 ML NEBU INHALATION SCH ×2 (08:26→20:17)
[2016-05-31] MEDS: ALBUTEROL NEBULIZED 2.5 MG/3 ML INHALATION SCH ×4 (08:26→20:17)
[2016-05-31] MEDS ORDERED: SODIUM CHLORIDE 0.9% 500 ML IV ONE (10:26)
[2016-05-31] MEDS ORDERED: SODIUM CHLORIDE 0.9% 1,000 ML IV SCH (10:30)
--- NOTE | 2016-05-31 12:40 | XR ---
EXAMINATION TYPE: XR chest 1V portable DATE OF EXAM: 05/31/2016 12:34 PM HISTORY: shortness of breath. REFERENCE: Previous study dated 05/29/2016. FINDINGS: The heart is enlarged. There are multiple calcified pleural plaques present. There are smal l, bilateral effusions. IMPRESSION: NO SIGNIFICANT CHANGE IN THE APPEARANCE OF THE CHEST.
[2016-05-31 12:50] VITALS: BMI 31.4
--- NOTE | 2016-05-31 14:21 | CONS ---
DATE OF CONSULTATION: Mr. Whiting is an 86-year-old gentleman who is seen for cardiac evaluation. This patient's medical records are reviewed. He is an 86-year-old gentleman who came to the hospital with change in the mental status. This patient has a history of dementia and usually he has been confused, but had worse. He did not have any definite fever, chills, nausea or vomiting. Patient was admitted in the hospital, initially he was treated for a urinary tract infection and IV fluids. Patient also had evidence of acute on chronic renal failure with creatinine of 2.2. Patient has a mild atrial debridement disorder and his white count was 42,000 and platelet count was 136,000. Patient has a prior history of coronary artery disease, chronic atrial fibrillation and diastolic heart failure. Patient is being followed by ( ). I am not sure whether he has any stent done in the past. CAT scan was done which showed evidence of cerebral atrophy and influenza testing was negative. Chest x-ray did not show any left ventricular failure. Past medical history includes history of chronic myeloproliferative disorder, diastolic heart failure, asbestosis, congenital single kidney, prostate cancer, chronic diastolic heart failure, hypothyroidism, prior history of cardiac catheterization. Patient's home medications included vitamin D2, Synthroid, Hydrea, Zestril 2.5 mg daily, Lasix 40 mg daily, Lioresal, Coreg 6.25 mg b.i.d., Remeron 15 mg at bedtime and Ultram. Physical examination at present reveals an 86-year-old gentleman who at present is currently a little bit lethargic, patient is afebrile. Patient's oxygen saturation is 93%. Respirations are nonlabored. Blood pressure is 110/77 mmHg, heart rate is 72 per minute. HEENT examination is negative. Neck is supple. Jugular venous pressure is elevated up to the angle of the jaw, both the carotid pulses are felt. There is no bruit. Chest is symmetrical. HEART: The PMI is not felt. First and second heart sounds are normal. Lung examination reveals bilateral few scattered wheezes. ABDOMEN: Soft. Spleen is palpable on the left side. EXTREMITIES: There is 2+ pedal edema. Patient's laboratory tests showed initial BNP level was 10,900. We do not have patient's underlying baseline BNP available. Electrolytes are normal. Creatinine is increased to 2.42 and the white count is 67,000. Patient's urine culture and the blood cultures are so far negative. FINAL IMPRESSION: 1. This patient is primarily admitted with change in the mental status, has been treated for urinary tract infection. However, urine culture so far negative. 2. Patient has acute on chronic renal failure. Patient does have evidence of some right-sided heart failure with elevated jugular venous pressure and leg edema and patient has bilateral wheezing. Initial BNP level was 10,000. RECOMMENDATIONS: Patient has received Lasix 40 mg IV this morning without any significant response. We will repeat the chest x-ray and BNP level and echocardiogram. If patient does not respond to the 40 mg IV Lasix, may need to 80 mg IV Lasix. Patient's overall prognosis is guarded.
--- NOTE | 2016-05-31 14:23 | P.PN ---
Subjective This is an 86-year-old gentleman patient of Dr. Bailey and Dr. Francisco. His corner cutter is Dr. Arevalo. He has underlying history offchronic myeloproliferative disorder, hypothyroidism, prostate cancer, chronic diastolic heart failure, chronic atrial fibrillation, hypertension, asbestosis, congenital single kidney, dementia. Patient was in his usual state of health until a couple days ago when he started having mental status changes. He does have underlying dementia and is always confused and needs direction to complete simple tasks but this worsened. He also was not eating very much for couple of days. His denies that he had fever, chills, nausea, vomiting or diarrhea. Patient and his reside at [facility] and have a nurse visit weekly , after this week's visit, the nurse recommended that the patient come into [facility] to be evaluated. Patient was found to have white count of 42.3, hemoglobin 8.5, platelet count 136, BUN 26 and creatinine 2.2. It appears his baseline creatinine is 1.5 . INR 2.0, chloride 110. Urinalysis revealed protein 2+, blood large, leukoesterase trace, RBCs greater than 182, WBC 18. Influenza testing A&B were negative. CAT scan of the brain showed cerebral atrophy with no acute intracranial abnormality. Chest x-ray shows asbestos-related pleural disease with possible trace effusions. Correlate to exclude mild CHF. Patient was admitted to the [facility] floor and started on ceftriaxone. Urine culture and blood culture obtained. Consult with oncology and cardiology. Patient resides at [facility] with his . She plans to take him home at the time of discharge. 05/31: BUN and creatinine have increased for which nephrology consult has been added. They have ordered IV fluids at 60 mL per hour. Chest x-ray shows no significant change. Patient is also been seen by Dr. Francisco and Hydrea was placed on hold. Urine culture is showing no growth. Patient states that he is feeling better today. Per his , he is about the same from yesterday. He remains confused. Sitter is at the bedside. Objective - Vital Signs Vital signs: Vital Signs Temp 97 F L 05/31/16 07:00 Pulse 72 05/31/16 08:42 Resp 18 05/31/16 07:00 BP 110/77 05/31/16 07:00 Pulse Ox 97 05/31/16 07:00 Intake & Output 05/30/16 05/31/16 05/31/16 18:59 06:59 18:59 Intake Total 100 Balance 100 Weight 100 kg 99.5 kg Intake: Oral 100 Other: Voiding Method Toilet Toilet Toilet # Voids 3 1 # Bowel Movements 1 - Exam General appearance: cooperative, no acute distress, obese - EENT Eyes: Reports anicteric sclerae, Reports EOMI, Reports PERRLA, Reports normal apperance, Denies abnormal pupil, Denies disc margins sharp, Denies edentulous, Denies fundus normal, Denies photophobia, Denies dentition normal, Denies poor dentition, Denies ptosis, Denies scleral icterus ENT: Reports NA/AT, Reports normal oropharynx, Denies hard of hearing, Denies hearing grossly normal, Denies other, Denies pharyngeal erythema, Denies thrush , Denies tonsillar exudates, Denies tonsillar swelling - Respiratory Respiratory: bilateral: rales, wheezing, negative: CTA, diminished, dullness - Cardiovascular Rhythm: regular Heart sounds: normal: S1, S2 Abnormal Heart Sounds: Reports systolic murmur - Gastrointestinal General gastrointestinal: Reports normal bowel sounds, Reports soft, Denies absent bowel sounds, Denies decreased bowel sounds, Denies distended, Denies hepatomegaly, Denies hyperactive bowel sounds, Denies organomegaly, Denies rigid , Denies scaphoid, Denies splenomegaly, Denies tenderness, Denies umbilical hernia, Denies ventral hernia - Integumentary Integumentary: Reports normal, Reports normal turgor - Neurologic Neurologic: CNII-XII intact - Musculoskeletal Musculoskeletal: Reports generalized weakness, Reports strength equal bilaterally - Psychiatric Psychiatric: Reports A&O x's 1 with confusion but able to follow simple commands , No appropriate affect, No intact judgment & insight - Labs CBC & Chem 7: 05/31/16 07:11 05/31/16 07:11 Labs: Abnormal Lab Results - Last 24 Hours (Table) 05/31/16 05/31/16 05/31/16 Range/Units 07:11 07:11 07:11 WBC 67.0 H* (3.8-10.6) k/uL RBC 2.10 L (4.30-5.90) m/uL Hgb 8.2 L (13.0-17.5) gm/dL Hct 27.4 L (39.0-53.0) % MCV 130.9 H (80.0-100.0) fL MCH 39.2 H (25.0-35.0) pg MCHC 29.9 L (31.0-37.0) g/dL RDW 17.8 H (11.5-15.5) % Plt Count 121 L (150-450) k/uL PT 22.5 H (9.0-12.0) sec Sodium 148 H (137-145) mmol/L Chloride 113 H (98-107) mmol/L Carbon Dioxide 20 L (22-30) mmol/L BUN 27 H (9-20) mg/dL Creatinine 2.42 H (0.66-1.25) mg/dL Glucose 105 H (74-99) mg/dL Microbiology - Last 24 Hours (Table) 05/30/16 09:56 Urine Culture - Preliminary Urine,Voided Assessment and Plan Plan: 1. Metabolic encephalopathy secondary to urinary tract infection and sepsis with history of mild bladder incontinence. Continue ceftriaxone. Urine culture and blood culture in process 2. Acute kidney injury with chronic kidney disease stage III and congenital single kidney. Patient will be given 1 L of IV fluid bolus and IV fluids will be discontinued due to history of heart failure. Repeat labs in the morning. Consult with nephrology appreciated. IV fluids at 60 mL per hour. 3. Myeloproliferative disorder. Consult with Dr. Francisco appreciated. Hydrea was placed on hold. 4. Chronic atrial fibrillation on long-term anticoagulation with Coumadin, Coreg, lisinopril. 5. Chronic diastolic heart failure. Continue Lasix 40 mg IV push. Cardiology consult. 6. Hypertension on lisinopril 5 mg daily Coreg 6.25 mg twice a day 7. Hypothyroidism on levothyroxine 75 g daily 8. Mild dementia on Aricept 5 mg daily 9. Overactive bladder 10. Hyperuricemia. Continue allopurinol. 11. Asbestosis with pleural plaques 12. Patient only has unilateral kidney 13. DVT prophylaxis patient's on maintenance Coumadin for A. fib 14. Leukocytosis most likely secondary to hematology disorder and sepsis. 15. Splenomegaly with last CT in December 2015 showing 15 cm spleen 16. History of prostate cancer with history of prostatectomy and orchiectomy 17. GI prophylaxis Discharge plan: Return to [facility] with homecare Impression and plan of care have been directed as dictated by the signing physician. Tran Jack nurse practitioner acting as scribe for signing physician. Time with Patient: Greater than 30
[2016-05-31] MEDS: WARFARIN 3 MG TAB PO SCH (17:50)
--- NOTE | 2016-05-31 18:51 | CONS ---
DATE OF CONSULTATION: REASON FOR CONSULTATION: Renal failure. HISTORY OF PRESENT ILLNESS: Patient is an 86-year-old white male who was admitted to the hospital on 05/29/2016 with a history of altered mentation. Patient's is present at bedside and she states he has not been eating much. Family did state that patient has one functioning kidney, as the other kidney has been atrophic since . He has not seen a operations/dispatch previously. Review of labs shows a serum creatinine of 2.2 mg/dL on admission, and it is now at 2.42. Previous labs show a creatinine of 1.39 and 1.34 mg/dL in February of 2016. Patient was given a liter of fluid bolus yesterday, which apparently did improve his urine output. He was started on IV fluids today as well. Patient has been voiding, and nursing staff note good volume each time he voids, although it is not measured. Patient has not received any IV contrast. His blood pressure has been borderline but not significantly low. He is not maintained on any nephrotoxic medications. Patient was on very low-dose Zestril at 2.5 mg, which was eventually discontinued yesterday. PAST MEDICAL HISTORY: 1. Atrial fibrillation. 2. Hypertension. 3. History of NC. 4. Coronary artery disease. 5. Hypothyroidism. 6. History of prostate carcinoma. 7. Chronic kidney disease with solitary kidney. 8. 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 PAST SURGICAL HISTORY: 1. Adenoidectomy. 2. Cardiac catheterization with coronary stent placement. 3. Tonsillectomy. 4. Thyroidectomy. 5. Prostatectomy. 6. Polypectomy. 7. Colonoscopy. 8. TURP. SOCIAL HISTORY: Patient is an ex-smoker. No history of drug abuse or alcohol abuse. Medications at home included: 1. Aricept. 2. Vitamin D2. 3. Synthroid. 4. Lawrence. 5. Hydrea. 6. Zestril. 7. Lasix. 8. Potassium. 9. Pulmicort. 10. Coreg. 11. Uloric. 12. Remeron. 13. Ultram. ALLERGIES: NONE. REVIEW OF SYSTEMS: As per HPI. Other systems negative. On examination, patient is comfortable. He is mildly short of breath, not in any acute distress. Blood pressure is 141/64, heart rate 84 per minute. He is afebrile. EXAMINATION OF THE HEART: S1 and S2. EXAMINATION OF THE LUNGS: Bilateral breath sounds are heard. ABDOMEN: Soft, nontender. Examination of lower extremities shows edema 1+ bilaterally with chronic skin changes. DRAWING IN MACHINE TENDER HELPER exam shows patient has been moving his extremities; however, he is lethargic and not able to carry on a detailed conversation. Labs show sodium of 148, potassium 5.0, chloride 113. CO2 is 20. BUN 27, serum creatinine 2.42. Hemoglobin 8.2 g/dL. UA shows 2+ protein, RBCs more than 182, and WBCs 18. ASSESSMENT: 1. Acute kidney injury, most likely acute tubular necrosis, currently non-oliguric. There was likely a component of hypovolemia initially as well. Patient is maintained on IV fluids, which we will continue; however, I have decreased the rate to about 60 mL/hour. A chest x-ray has also been ordered. Currently patient is not on any nephrotoxic medications. I have discussed with nursing staff to monitor his urine output, which appears to be adequate at this time. 2. Chronic kidney disease with solitary kidney and atrophic kidney since , according to his . Previous creatinine at 1.3 mg/dL in February of 2016, NKF stage IIIB. Etiology is most likely nephrosclerosis; however, patient does have proteinuria on this urine specimen. But there was evidence of significant hematuria as well on this UA, so therefore the proteinuria may be secondary to the hematuria. 3. Microscopic hematuria in a patient with history of prostatic carcinoma. This will need to be repeated as outpatient. 4. Myeloproliferative disorder, being followed by Oncology, status post bone marrow biopsy; possible underlying CML. 5. Encephalopathy, most likely metabolic. No medications on board to further affect his mentation. 6. Hypernatremia associated with free water deficit. Patient has not been drinking much. I will change the IV fluids to half normal saline. 7. Chronic atrial fibrillation, maintained on Coumadin. 8. Asbestosis with pleural plaques. 9. Hypertension, currently fairly well controlled. PLAN: Check chest x-ray. Change IV fluids to half normal saline. Monitor urine output. Repeat labs in a.m. Thank you for this consultation. Will continue to follow the patient with you during his hospitalization.
[2016-05-31] MEDS: DONEPEZIL 5 MG TAB PO SCH (20:46)
[2016-05-31] MEDS: MIRTAZAPINE 15 MG TAB PO SCH (20:46)
[2016-06-01] MEDS: SODIUM CHLORIDE 0.45% 1,000 ML IV SCH ×3 (04:41→13:42)
[2016-06-01] MEDS: LEVOTHYROXINE 75 MCG TAB PO SCH (06:10)
[2016-06-01 08:29] LABS: Anisocytosis Slight; CH 37.6; CHCM 30.2; HCT 24.8 % (39.0-53.0); HDW 2.72; HGB 7.6 gm/dL (13.0-17.5); Hypochromasia Moderate; MCH 38.6 pg (25.0-35.0); MCHC 30.7 g/dL (31.0-37.0); Macrocytosis Marked; Mean Platelet Volume 7.2; RBC 1.97 m/uL (4.30-5.90); RDW 17.3 % (11.5-15.5)
[2016-06-01 08:36] LABS: INR 2.5 (<1.1); Prothrombin Time 23.6 sec (9.0-12.0)
[2016-06-01 08:37] LABS: WBC 46.2 k/uL (3.8-10.6)
[2016-06-01 08:40] LABS: MCV 125.7 fL (80.0-100.0)
[2016-06-01 08:42] LABS: Calcium 8.6 mg/dL (8.4-10.2)
[2016-06-01] MEDS: BUDESONIDE 1 MG/2 ML NEBU INHALATION SCH ×2 (09:00→19:21)
[2016-06-01] MEDS: ALBUTEROL NEBULIZED 2.5 MG/3 ML INHALATION SCH ×4 (09:00→19:16)
[2016-06-01] MEDS: FAMOTIDINE 20 MG TAB PO SCH (09:19)
[2016-06-01] MEDS: ALLOPURINOL 100 MG TAB PO SCH (09:19)
[2016-06-01] MEDS: POTASSIUM CHLORIDE ER 20 MEQ TAB.ER PO SCH (09:19)
[2016-06-01] MEDS: CARVEDILOL 6.25 MG TAB PO SCH ×2 (09:19→17:32)
--- NOTE | 2016-06-01 10:21 | ECHOF ---
Referral Reason:chf MEASUREMENTS -------- HEIGHT: 177.8 cm WEIGHT: 99.3 kg BP: RVIDd: 3.8 cm (< 3.3) IVSd: 1.1 cm (0.6 - 1.1) LVIDd: 5.6 cm (3.9 - 5.3) LVPWd: 1.1 cm (0.6 - 1.1) IVSs: 1.6 cm LVIDs: 4.4 cm LVPWs: 1.7 cm LA Diam: 4.6 cm (2.7 - 3.8) LAESV Index (A-L): 43.51 ml/m Ao Diam: 3.5 cm (2.0 - 3.7) AV Cusp: 1.0 cm (1.5 - 2.6) LA Diam: 5.4 cm (2.7 - 3.8) MV EXCURSION: 17.570 mm (> 18.000) MV EF SLOPE: 139 mm/s (70 - 150) EPSS: 0.7 cm MV E Germán: 1.18 m/s MV DecT: 202 ms MV A Germán: 0.32 m/s MV E/A Ratio: 3.69 AV maxP.39 mmHg AV meanP.97 mmHg AR PHT: 738 ms RAP: 5.00 mmHg RVSP: 54.50 mmHg FINDINGS -------- Undetermined rhythm. This was a technically good study. There is borderline concentric left ventricular hypertrophy. Overall left ventricular systolic function is normal with, an EF between 55 - 60 %. The right ventricle is mild to moderately enlarged. LA is severely dilated >40 ml/m2 The right atrium is normal in size. Aortic valve is trileaflet and is moderately thickened. There is mild aortic regurgitation. There is mild aortic stenosis present. Peak/mean gradient across the Aortic Valve is 27.39mmHg / 14.97mmHg. The mitral valve leaflets are moderately thickened. Moderate mitral annular calcification present. Moderate mitral regurgitation is present. The peak and mean MV gradients are 7.16mmHg 2.17mmHg as measured by doppler. Moderate to severe tricuspid regurgitation present. There is moderate to severe pulmonary hypertension. The right ventricular systolic pressure, as measured by Doppler, is 54.50mmHg. Trace/mild (physiologic) pulmonic regurgitation. The aortic root size is normal. The inferior vena cava is dilated with no significant inspiratory collapse which is consistent estimated right atrial pressure of >15 mmHg. Echo free space may represent effusion or a pericardial fat pad. CONCLUSIONS -------- 1. Undetermined rhythm. 2. The mitral valve leaflets are moderately thickened. 3. Moderate mitral annular calcification present. 4. Moderate mitral regurgitation is present. 5. The peak and mean MV gradients are 7.16mmHg 2.17mmHg as measured by doppler. 6. Moderate to severe tricuspid regurgitation present. 7. There is moderate to severe pulmonary hypertension. 8. The right ventricular systolic pressure, as measured by Doppler, is 54.50mmHg. 9. Trace/mild (physiologic) pulmonic regurgitation. 10. The aortic root size is normal. 11. The inferior vena cava is dilated with no significant inspiratory collapse which is consistent estimated right atrial pressure of >15 mmHg. 12. This was a technically good study. 13. Echo free space may represent effusion or a pericardial fat pad. 14. There is borderline concentric left ventricular hypertrophy. 15. Overall left ventricular systolic function is normal with, an EF between 55 - 60 %. 16. The right ventricle is mild to moderately enlarged. 17. LA is severely dilated >40 ml/m2 18. There is mild aortic regurgitation. 19. There is mild aortic stenosis present. 20. Peak/mean gradient across the Aortic Valve is 27.39mmHg / 14.97mmHg. DIFFUSER OPERATOR: Maya Acuna RDCS
[2016-06-01] MEDS ORDERED: FUROSEMIDE 40 MG TAB PO STA (10:25)
[2016-06-01] MEDS ORDERED: FUROSEMIDE 10 MG/ML 4 ML VIAL IV STA (11:46)
--- NOTE | 2016-06-01 15:21 | PN ---
Patient is seen for followup for acute kidney injury. He is currently maintained on IV fluids. Urine output has improved with IV hydration. Serum creatinine; however, staying at about 2.4 mg/dL. Patient has not been eating much. His previous creatinine has been at 1.6 mg/dL and 1.4 mg/dL in February of 2016. On examination, blood pressure is 87/60, heart rate 72 per minute. He is afebrile. Examination of the heart, S1 and S2. Examination of the lungs, bilateral breath sounds are heard. Abdomen is soft, nontender. Examination of lower extremities shows edema 1+ bilaterally. TUBULAR PRODUCTS FABRICATOR exam shows patient has been moving all 4 extremities. Labs show sodium of 146, potassium 5.0, BUN 32, serum creatinine 2.47. Hemoglobin 7.6 g/dL. ASSESSMENT: 1. Acute kidney injury, acute tubular necrosis, currently nonoliguric. No evidence of urine retention. Patient has been voiding on his own. There are no nephrotoxic agents are on board; however, blood pressure is low today. Patient is maintained on Coreg and I will add parameters to avoid hypotension. He has been maintained on IV fluids, which we can decrease today. He is encouraged to increase his oral intake as well. 2. Chronic kidney disease with solitary kidney and atrophic kidney since according to patient's family. He appears to be at NKF stage IIIB, most likely secondary to nephrosclerosis. 3. Microscopic hematuria in a patient with a history of prostatic carcinoma. 4. 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 5. Hypernatremia currently slightly improved. IV fluids were changed to half-normal saline. 6. Chronic atrial fibrillation. 7. Asbestosis with pleural plaques. 8. Hypertension. Blood pressure currently low. PLAN: Decrease IV fluids, add parameters for Coreg to avoid hypotension. Increased oral intake and repeat labs in a.m. Continue to check bladder scan periodically to rule out underlying urine retention. I will give a dose of Lasix as well today.
--- NOTE | 2016-06-01 15:54 | PN ---
Mr. Whiting is an 86-year-old gentleman who was admitted with change in mental status. Patient was initially treated for urinary tract infection. However, urine cultures are negative. Patient also has a chronic myeloid leukemia and history of congestive cardiac failure. Patient has chronic renal failure and a single kidney. He is feeling better. He has been having some shortness of breath. Patient is afebrile. The blood pressure is 130/80 mmHg. Jugular venous pressure is elevated. First and second heart sounds are normal. Lungs reveals bilateral basal rales. There is 2+ leg edema. Chest x-ray was reviewed, which does show evidence of congestive cardiac failure. Patient's echocardiogram reveals a normal left ventricular systolic function; however left atrium is enlarged and there is a moderate degree of pulmonary hypertension. This is suggestive of diastolic dysfunction. Patient's BNP level is increased from 10,000 to 15,000 and the right atrial pressure is also elevated. These are suggestive that patient does have evidence of volume overload and biventricular failure. We would recommend to treat the patient with Lasix IV 40 mg IV q.8 hourly and we will watch the creatinine.
--- NOTE | 2016-06-01 16:06 | P.PN ---
Subjective This is an 86-year-old gentleman patient of Dr. Bailey and Dr. Francisco. His medical aide is Dr. Arevalo. He has underlying history offchronic myeloproliferative disorder, hypothyroidism, prostate cancer, chronic diastolic heart failure, chronic atrial fibrillation, hypertension, asbestosis, congenital single kidney, dementia. Patient was in his usual state of health until a couple days ago when he started having mental status changes. He does have underlying dementia and is always confused and needs direction to complete simple tasks but this worsened. He also was not eating very much for couple of days. His denies that he had fever, chills, nausea, vomiting or diarrhea. Patient and his reside at [facility] and have a nurse visit weekly , after this week's visit, the nurse recommended that the patient come into [facility] to be evaluated. Patient was found to have white count of 42.3, hemoglobin 8.5, platelet count 136, BUN 26 and creatinine 2.2. It appears his baseline creatinine is 1.5 . INR 2.0, chloride 110. Urinalysis revealed protein 2+, blood large, leukoesterase trace, RBCs greater than 182, WBC 18. Influenza testing A&B were negative. CAT scan of the brain showed cerebral atrophy with no acute intracranial abnormality. Chest x-ray shows asbestos-related pleural disease with possible trace effusions. Correlate to exclude mild CHF. Patient was admitted to the [facility] floor and started on ceftriaxone. Urine culture and blood culture obtained. Consult with oncology and cardiology. Patient resides at [facility] with his . She plans to take him home at the time of discharge. 05/31: BUN and creatinine have increased for which nephrology consult has been added. They have ordered IV fluids at 60 mL per hour. Chest x-ray shows no significant change. Patient is also been seen by Dr. Francisco and Hydrea was placed on hold. Urine culture is showing no growth. Patient states that he is feeling better today. Per his , he is about the same from yesterday. He remains confused. Sitter is at the bedside. 06/01: Patient's mentation is improved today and he is more talkative. Patient' s and daughter both feel he has improved in his mental status. White count is now down to 46.2, hemoglobin is at 7.6 and platelet count 104. BUN is 32 and creatinine 2.47. INR is 2.5. Nephrology has ordered 1 dose of IV Lasix and decrease IV fluids. He has also received 1 dose of oral Lasix. Patient to be encouraged to take oral fluids. Anticipate possible discharge home tomorrow. Objective - Vital Signs Vital signs: Vital Signs Temp 97.5 F L 06/01/16 15:38 Pulse 75 06/01/16 15:51 Resp 20 06/01/16 15:38 BP 145/65 06/01/16 15:38 Pulse Ox 93 L 06/01/16 15:38 Intake & Output 05/31/16 06/01/16 06/01/16 18:59 06:59 18:59 Intake Total 180 1260 860 Output Total 43 Balance 137 1260 860 Weight 99.5 kg 99.5 kg Intake: IV 180 780 Sodium Chloride 0.9% 1, 180 780 000 ml @ 60 mls/hr IV . [id number] ANTONY Rx#:[id number] Intake, IV Titration 360 Amount Sodium Chloride 0.45% 1, 60 000 ml @ 20 mls/hr IV . Q24H ANTONY Rx#:[id number] Sodium Chloride 0.45% 1, 300 000 ml @ 60 mls/hr IV . [id number] ANTONY Rx#:[id number] Oral 480 500 Output: Post Void Residual 43 Other: Voiding Method Toilet Toilet Toilet # Voids 2 3 # Bowel Movements 1 - Exam General appearance: cooperative, no acute distress, obese - EENT Eyes: Reports anicteric sclerae, Reports EOMI, Reports PERRLA, Reports normal apperance, Denies abnormal pupil, Denies disc margins sharp, Denies edentulous, Denies fundus normal, Denies photophobia, Denies dentition normal, Denies poor dentition, Denies ptosis, Denies scleral icterus ENT: Reports NA/AT, Reports normal oropharynx, Denies hard of hearing, Denies hearing grossly normal, Denies other, Denies pharyngeal erythema, Denies thrush , Denies tonsillar exudates, Denies tonsillar swelling - Respiratory Respiratory: bilateral: rales, wheezing, negative: CTA, diminished, dullness - Cardiovascular Rhythm: regular Heart sounds: normal: S1, S2 Abnormal Heart Sounds: Reports systolic murmur - Gastrointestinal General gastrointestinal: Reports normal bowel sounds, Reports soft, Denies absent bowel sounds, Denies decreased bowel sounds, Denies distended, Denies hepatomegaly, Denies hyperactive bowel sounds, Denies organomegaly, Denies rigid , Denies scaphoid, Denies splenomegaly, Denies tenderness, Denies umbilical hernia, Denies ventral hernia - Integumentary Integumentary: Reports normal, Reports normal turgor - Neurologic Neurologic: CNII-XII intact - Musculoskeletal Musculoskeletal: Reports generalized weakness, Reports strength equal bilaterally - Psychiatric Psychiatric: Reports A&O x's 1 with confusion but able to follow simple commands , No appropriate affect, No intact judgment & insight - Labs CBC & Chem 7: 06/01/16 08:09 06/01/16 08:09 Labs: Abnormal Lab Results - Last 24 Hours (Table) 06/01/16 06/01/16 06/01/16 Range/Units 08:09 08:09 08:09 WBC 46.2 H* (3.8-10.6) k/uL RBC 1.97 L (4.30-5.90) m/uL Hgb 7.6 L (13.0-17.5) gm/dL Hct 24.8 L (39.0-53.0) % MCV 125.7 H D (80.0-100.0) fL MCH 38.6 H (25.0-35.0) pg MCHC 30.7 L (31.0-37.0) g/dL RDW 17.3 H (11.5-15.5) % Plt Count 104 L (150-450) k/uL PT 23.6 H (9.0-12.0) sec Sodium 146 H (137-145) mmol/L Chloride 113 H (98-107) mmol/L Carbon Dioxide 20 L (22-30) mmol/L BUN 32 H (9-20) mg/dL Creatinine 2.47 H (0.66-1.25) mg/dL Microbiology - Last 24 Hours (Table) 05/30/16 09:56 Urine Culture - Final Urine,Voided Assessment and Plan Plan: 1. Metabolic encephalopathy secondary to urinary tract infection and sepsis with history of mild bladder incontinence. Continue ceftriaxone. Urine culture and blood culture in process 2. Acute kidney injury due to acute tubular necrosis with chronic kidney disease stage III and congenital single kidney. Patient will be given 1 L of IV fluid bolus and IV fluids will be discontinued due to history of heart failure. Repeat labs in the morning. Consult with nephrology appreciated. IV fluids at 20 mL per hour. 3. Myeloproliferative disorder. Consult with Dr. Francisco appreciated. Hydrea was placed on hold. 4. Chronic atrial fibrillation on long-term anticoagulation with Coumadin, Coreg, lisinopril. 5. Chronic diastolic heart failure. Lasix is being ordered daily. Cardiology consult. 6. Hypertension on lisinopril 5 mg daily, Coreg 6.25 mg twice a day 7. Hypothyroidism on levothyroxine 75 g daily 8. Mild dementia on Aricept 5 mg daily 9. Overactive bladder 10. Hyperuricemia. Continue allopurinol. 11. Asbestosis with pleural plaques 12. Patient only has unilateral kidney 13. DVT prophylaxis patient's on maintenance Coumadin for A. fib 14. Leukocytosis most likely secondary to hematology disorder and sepsis. 15. Splenomegaly with last CT in December 2015 showing 15 cm spleen 16. History of prostate cancer with history of prostatectomy and orchiectomy 17. GI prophylaxis Discharge plan: Return to [facility] with homecare Impression and plan of care have been directed as dictated by the signing physician. Tran Jack nurse practitioner acting as scribe for signing physician. Time with Patient: Greater than 30
--- NOTE | 2016-06-01 16:56 | US ---
EXAMINATION TYPE: US kidneys/renal and bladder DATE OF EXAM: 06/01/2016 4:35 PM COMPARISON: NONE CLINICAL HISTORY: renal failure. UTI, right kidney surgically absent 65 years ago EXAM MEASUREMENTS: Right Kidney: Surgically absent Left Kidney: 14.3 x 6.1 x 5.6 cm TECHNOLOGIST IMPRESSION: Right Kidney: Surgically absent Left Kidney: multiple cystic areas noted, largest = 4.5 x 4.2 x 4.7cm Bladder: not fully distended Bilateral Jets seen: no Right pleural effusion Splenomegaly No suspicious mass or normal-appearing kidney is seen at level of right renal fossa. Small right pleu ral effusion is noted. Finding correlates with recent chest x-ray from yesterday. Left kidney is prom inent in size with several simple appearing cysts scattered throughout left kidney on images saved me asuring up to 4.7 cm on long axis. Spleen is enlarged at 18.1 cm there are level of left kidney in th e left upper quadrant. Bladder is poorly distended and thus suboptimally evaluated. No suspicious int raluminal mass is noted on images saved. IMPRESSION: No hydronephrosis is seen in single left kidney. Splenomegaly is noted and may warrant further clinic al workup. Enlarged spleen is noted on topogram CT image 02/23/2016 and thus may be chronic in etiolo gy.
[2016-06-01] MEDS: WARFARIN 3 MG TAB PO SCH (17:32)
[2016-06-01] MEDS: DONEPEZIL 5 MG TAB PO SCH (20:15)
[2016-06-01] MEDS: MIRTAZAPINE 15 MG TAB PO SCH (20:15)
[2016-06-02] MEDS: LEVOTHYROXINE 75 MCG TAB PO SCH (06:04)
[2016-06-02] MEDS: BUDESONIDE 1 MG/2 ML NEBU INHALATION SCH (07:06)
[2016-06-02] MEDS: ALBUTEROL NEBULIZED 2.5 MG/3 ML INHALATION SCH ×2 (07:06→11:06)
[2016-06-02 07:46] VITALS: BP 158/67; RESP 20; TEMP 98.7
[2016-06-02 08:10] LABS: Anisocytosis Slight; CHCM 30.5; HCT 24.4 % (39.0-53.0); HDW 2.79; HGB 7.5 gm/dL (13.0-17.5); Hypochromasia Moderate; MCH 38.7 pg (25.0-35.0); MCHC 30.8 g/dL (31.0-37.0); MCV 125.6 fL (80.0-100.0); Macrocytosis Marked; Mean Platelet Volume 8.1; RBC 1.94 m/uL (4.30-5.90); RDW 17.6 % (11.5-15.5)
[2016-06-02 08:16] LABS: INR 2.8 (<1.1); Prothrombin Time 27.3 sec (9.0-12.0)
[2016-06-02 08:36] LABS: Calcium 8.7 mg/dL (8.4-10.2); Potassium 4.9 mmol/L (3.5-5.1)
[2016-06-02] MEDS: POTASSIUM CHLORIDE ER 20 MEQ TAB.ER PO SCH (08:51)
[2016-06-02] MEDS: CARVEDILOL 6.25 MG TAB PO SCH (08:51)
[2016-06-02] MEDS: FAMOTIDINE 20 MG TAB PO SCH (08:51)
[2016-06-02] MEDS: ALLOPURINOL 100 MG TAB PO SCH (08:51)
[2016-06-02 09:03] LABS: WBC 43.9 k/uL (3.8-10.6)
[2016-06-02 11:16] VITALS: PULSE 84
[2016-06-02] MEDS: SODIUM CHLORIDE 0.45% 1,000 ML IV SCH (12:36)
--- NOTE | 2016-06-02 13:30 | PN ---
Patient is seen for follow-up for acute kidney injury Patient's serum creatinine has been at about 2.4 mg/dL. It has gone up to 2.7 now. Etiology is most likely acute tubular necrosis, currently nonoliguric. Patient's urine output was very poorly initially and this has increased with IV hydration. Patient is currently eating better. His IV fluids were decreased yesterday. Bladder scan has been done and there is no evidence of urine retention. On examination today, blood pressure is 158/67, heart rate 78 per minute. He is afebrile. Examination of the heart S1 and S2. Examination of the lungs: Bilateral breath sounds are heard. Decreased breath sounds in bases. Abdomen is soft, nontender. Examination of lower extremities shows edema 1+ bilaterally. PUBLIC HEALTH ANALYST exam shows patient is moving all 4 extremities. Labs show hemoglobin 7.5, white cell count 43.9; sodium is 145, potassium 4.9, serum creatinine 2.7, BUN of 35. ASSESSMENT: 1. Acute kidney injury, acute tubular necrosis, fairly stable. Serum creatinine slightly high today. No evidence of urine retention on previous bladder scans. Patient has solitary kidney, which is his left kidney. 2. Chronic kidney disease with solitary kidney status post right nephrectomy for an atrophic right kidney according to patient's family. Previous creatinine had been at about 1.6 to 1.4 mg/dL in February 2016. 3. 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 4. Hypernatremia, currently improved. 5. Chronic atrial fibrillation. 6. Asbestosis with pleural plaques. PLAN: Encourage increased oral intake. Patient can be discharged from nephrology standpoint. He will need to repeat labs as outpatient, need to repeat the CBC as well. Renal function may have deteriorated to some degree secondary to the significant anemia as well. We will need to follow this as outpatient.
--- NOTE | 2016-06-02 15:21 | PN ---
This patient was admitted with change in mental status, has been treated for urinary tract infection. Patient also has acute on chronic renal failure and diastolic dysfunction and congestive cardiac failure. Patient is much more alert and awake. Patient remains afebrile. HEART: S1 and S2 normal. Lungs are fairly clear to auscultation and percussion. Patient is going to be discharged home on home diuretics and the patient is advised to follow up with his prosthetic dentist.
--- NOTE | 2016-06-02 16:39 | P.DS ---
Providers Date of admission: 05/29/16 16:18 Expected date of discharge: 06/02/16 Attending physician: Loren Bailey Consults: 05/31/16 10:22 Consult Physician Routine Consulting Provider: Saurav Gerard Consult Reason/Comments: GILMA Do you want consulting provider notified?: Yes Primary care physician: Loren Bailey [facility] Course: This is an 86-year-old gentleman patient of Dr. Bailey and Dr. Francisco. His resource agent is Dr. Arevalo. He has underlying history offchronic myeloproliferative disorder, hypothyroidism, prostate cancer, chronic diastolic heart failure, chronic atrial fibrillation, hypertension, asbestosis, congenital single kidney, dementia. Patient was in his usual state of health until a couple days ago when he started having mental status changes. He does have underlying dementia and is always confused and needs direction to complete simple tasks but this worsened. He also was not eating very much for couple of days. His denies that he had fever, chills, nausea, vomiting or diarrhea. Patient and his reside at [facility] and have a nurse visit weekly , after this week's visit, the nurse recommended that the patient come into [facility] to be evaluated. Patient was found to have white count of 42.3, hemoglobin 8.5, platelet count 136, BUN 26 and creatinine 2.2. It appears his baseline creatinine is 1.5 . INR 2.0, chloride 110. Urinalysis revealed protein 2+, blood large, leukoesterase trace, RBCs greater than 182, WBC 18. Influenza testing A&B were negative. CAT scan of the brain showed cerebral atrophy with no acute intracranial abnormality. Chest x-ray shows asbestos-related pleural disease with possible trace effusions. Correlate to exclude mild CHF. Patient was admitted to the [facility] floor and started on ceftriaxone. Urine culture and blood culture obtained. Consult with oncology and cardiology. Patient resides at [facility] with his . She plans to take him home at the time of discharge. 05/31: BUN and creatinine have increased for which nephrology consult has been added. They have ordered IV fluids at 60 mL per hour. Chest x-ray shows no significant change. Patient is also been seen by Dr. Francisco and Hydrea was placed on hold. Urine culture is showing no growth. Patient states that he is feeling better today. Per his , he is about the same from yesterday. He remains confused. Sitter is at the bedside. 06/01: Patient's mentation is improved today and he is more talkative. Patient' s and daughter both feel he has improved in his mental status. White count is now down to 46.2, hemoglobin is at 7.6 and platelet count 104. BUN is 32 and creatinine 2.47. INR is 2.5. Nephrology has ordered 1 dose of IV Lasix and decrease IV fluids. He has also received 1 dose of oral Lasix. Patient to be encouraged to take oral fluids. Anticipate possible discharge home tomorrow. 06/02: patient will be discharged home today in stable condition. Respiratory status and mental status is much improved. Discharge Diagnoses: 1. Metabolic encephalopathy secondary to urinary tract infection and sepsis with history of mild bladder incontinence. 2. Acute kidney injury due to acute tubular necrosis with chronic kidney disease stage III and congenital single kidney. 3. Myeloproliferative disorder. 4. Chronic atrial fibrillation on long-term anticoagulation with Coumadin 5. Chronic diastolic heart failure. 6. Hypertension 7. Hypothyroidism 8. Mild dementia 9. Overactive bladder 10. Hyperuricemia 11. Asbestosis with pleural plaques 12. Patient only has unilateral kidney 13. Leukocytosis most likely secondary to hematology disorder and sepsis. 14. Splenomegaly 15. History of prostate cancer with history of prostatectomy and orchiectomy Discharge plan: Return to [facility] with homecare Impression and plan of care have been directed as dictated by the signing physician. Tran Jack nurse practitioner acting as scribe for signing physician. Patient Condition at Discharge: Good Plan - Discharge Summary New Discharge Prescriptions: Cephalexin [Keflex] 500 mg PO Q8HR #21 cap Discharge Medication List Donepezil [Aricept] 5 mg PO HS 02/03/16 [History] Ergocalciferol (Vitamin D2) [Drisdol] 50,000 unit PO APARICIO 02/03/16 [History] Levothyroxine Sodium [Levo-T] 75 mcg PO DAILY 02/03/16 [History] HYDROcodone/APAP 5-325MG [[place] 5-325] 1 tab PO Q6HR PRN 02/22/16 [History] Hydroxyurea [Hydrea] 500 mg PO W/SUPPER 02/22/16 [History] Lisinopril [Zestril] 2.5 mg PO DAILY 02/22/16 [History] Warfarin Sodium 6 mg PO MOTUWETHFRSA 02/22/16 [History] Famotidine [Pepcid] 20 mg PO DAILY #20 tablet 02/25/16 [Rx] Albuterol Nebulized [Ventolin Nebulized] 2.5 mg INHALATION RT-QID 05/29/16 [ History] Baclofen [Lioresal] 10 mg PO BID PRN 05/29/16 [History] Budesonide [Pulmicort] 1 mg INHALATION RT-BID 05/29/16 [History] Carvedilol [Coreg] 6.25 mg PO BID 05/29/16 [History] Febuxostat [Uloric] 40 mg PO DAILY 05/29/16 [History] Mirtazapine [Remeron] 15 mg PO HS 05/29/16 [History] SILVER sulfADIAZINE CREAM [Silvadene Cream] 1 applic TOPICAL BID PRN 05/29/16 [ History] traMADol HCL [Ultram] 50 mg PO TID PRN 05/29/16 [History] Cephalexin [Keflex] 500 mg PO Q8HR #21 cap 06/02/16 [Rx] Furosemide [Lasix] 40 mg PO MOWEFR #0 06/02/16 [Rx] Potassium Chloride ER [K-Dur 20] 10 meq PO MOWEFR #0 06/02/16 [Rx] Follow up Appointment(s)/Referral(s): Charlene Michaels MD [STAFF PHYSICIAN] - 1 Week (Dr. Michaels's office will call patient with an appointment date and time.) Loren Bailey MD [Primary Care Provider] - 06/13/16 10:45 am Patient Instructions/Handouts: Cephalexin (By mouth), Heart Failure (DC), Urinary Tract Infection in Men (DC), Acute Delirium (DC) Activity/Diet/Wound Care/Special Instructions: The Care Team (home care)-[phone] Discharge Disposition: HOME WITH HOME HEALTH SERVICES
[2016-06-04] MEDS ORDERED: ERGOCALCIFEROL 50,000 UNIT CAP PO SCH (09:00)
== END 2016-06-02 12:50 | disposition home health service (06) | DRG 871 ==
LOC: EC 13:55 → 5MS5E 16:18
PROVIDERS: ADMIT Internal Medicine; ATTEND Internal Medicine
DX: A41.9 Sepsis, unspecified organism (principal); G93.41 Metabolic encephalopathy; N17.0 Acute kidney failure with tubular necrosis; E87.0 Hyperosmolality and hypernatremia; Q60.0 Renal agenesis, unilateral; D47.1 Chronic myeloproliferative disease; I50.32 Chronic diastolic (congestive) heart failure; I48.2 Chronic atrial fibrillation; E86.0 Dehydration; F05 Delirium due to known physiological condition; F03.90 Unspecified dementia, unspecified severity, without behavioral disturbance, psychotic disturbance, mood disturbance, and anxiety; I13.0 Hypertensive heart and chronic kidney disease with heart failure and stage 1 through stage 4 chronic kidney disease, or unspecified chronic kidney disease; N39.0 Urinary tract infection, site not specified; I27.2 Other secondary pulmonary hypertension; R16.1 Splenomegaly, not elsewhere classified; N18.3 Chronic kidney disease, stage 3 (moderate); E79.0 Hyperuricemia without signs of inflammatory arthritis and tophaceous disease; R32 Unspecified urinary incontinence; I25.2 Old myocardial infarction; I25.10 Atherosclerotic heart disease of native coronary artery without angina pectoris; R31.29 Other microscopic hematuria; E86.1 Hypovolemia; I67.9 Cerebrovascular disease, unspecified; E89.0 Postprocedural hypothyroidism; N32.81 Overactive bladder; F32.9 Major depressive disorder, single episode, unspecified; J61 Pneumoconiosis due to asbestos and other mineral fibers; F17.290 Nicotine dependence, other tobacco product, uncomplicated; R06.2 Wheezing; R80.9 Proteinuria, unspecified; R53.1 Weakness; Z92.21 Personal history of antineoplastic chemotherapy; Z80.6 Family history of leukemia; Z86.010 Personal history of colon polyps; Z80.3 Family history of malignant neoplasm of breast; Z90.79 Acquired absence of other genital organ(s); Z85.46 Personal history of malignant neoplasm of prostate; Z95.5 Presence of coronary angioplasty implant and graft; Z79.01 Long term (current) use of anticoagulants; Z82.49 Family history of ischemic heart disease and other diseases of the circulatory system; Z79.891 Long term (current) use of opiate analgesic; Z79.51 Long term (current) use of inhaled steroids; Z79.899 Other long term (current) drug therapy
CPT/HCPCS: 36415; 70450; 71010; 71020; 76770; 80048; 80053; 81001; 82140; 82550; 82553; 83605; 83735; 83880; 84100; 84484; 85025; 85027; 85610; 85730; 87040; 87086; 87502; 93005; 93306; 94640; 96361; 96365; 99285

== ENCOUNTER 2016-06-07 17:34 | Inpatient (IN) | payer MEDICARE ==
--- NOTE | 2016-06-07 17:59 | ED ---
General Adult HPI - General Stated complaint: ANNELIESE Time Seen by Provider: 06/07/16 17:39 Source: RN notes reviewed, old records reviewed - History of Present Illness Initial comments: This is a 6-year-old male the ER for evaluation of multiple issues. Stemming from altered mental status, dehydration, CHF with difficulty breathing, a multiple medical coronaries. Patient has recent hospital admission about 2 weeks ago and was recently discharged. Patient did have transfusion today secondary to low hemoglobin. Patient saw his family doctor no since the emergency room. Patient's poor strain for medical history, he himself has no complaints. History is obtained from family and patient's chart - Related Data Home Medications Medication Instructions Recorded Confirmed Donepezil [Aricept] 5 mg PO HS 02/03/16 06/07/16 Ergocalciferol (Vitamin D2) 50,000 unit PO APARICIO 02/03/16 06/07/16 [Drisdol] Levothyroxine Sodium [Levo-T] 75 mcg PO DAILY 02/03/16 06/07/16 HYDROcodone/APAP 5-325MG [[place] 1 tab PO Q6HR PRN 02/22/16 06/07/16 5-325] Hydroxyurea [Hydrea] 500 mg PO W/SUPPER 02/22/16 06/07/16 Lisinopril [Zestril] 2.5 mg PO DAILY 02/22/16 06/07/16 Warfarin Sodium 6 mg PO TUTHSA 02/22/16 06/07/16 Albuterol Nebulized [Ventolin 2.5 mg INHALATION RT-QID 05/29/16 06/07/16 Nebulized] Baclofen [Lioresal] 10 mg PO BID PRN 05/29/16 06/07/16 Budesonide [Pulmicort] 1 mg INHALATION RT-BID 05/29/16 06/07/16 Carvedilol [Coreg] 6.25 mg PO BID 05/29/16 06/07/16 Febuxostat [Uloric] 40 mg PO DAILY 05/29/16 06/07/16 Mirtazapine [Remeron] 15 mg PO HS 05/29/16 06/07/16 SILVER sulfADIAZINE CREAM 1 applic TOPICAL BID PRN 05/29/16 06/07/16 [Silvadene Cream] traMADol HCL [Ultram] 50 mg PO TID PRN 05/29/16 06/07/16 Warfarin Sodium [Coumadin] 3 mg PO MOWEFR 06/07/16 06/07/16 Previous Rx's Medication Instructions Recorded Famotidine [Pepcid] 20 mg PO DAILY #20 tablet 02/25/16 Cephalexin [Keflex] 500 mg PO Q8HR #21 cap 06/02/16 Furosemide [Lasix] 40 mg PO MOWEFR #0 06/02/16 Potassium Chloride ER [K-Dur 20] 10 meq PO MOWEFR #0 06/02/16 Allergies Allergy/AdvReac Type Severity Reaction Status Date / Time No Known Allergies Allergy Verified 06/07/16 18:23 Review of Systems ROS Statement: Those systems with pertinent positive or pertinent negative responses have been documented in the HPI. ROS Other: All systems not noted in ROS Statement are negative. Past Medical History Past Medical History: Atrial Fibrillation, Blood Disorder, Heart Failure, Hypertension, Myocardial Infarction ([place]), Thyroid Disorder Additional Past Medical History / Comment(s): Chronic myeloproliferative disorder, asbestosis, congenital single kidney, prostate cancer, chronic diastolic heart failure, hypothyroidism Last Myocardial Infarction Date:: 1994 History of Any Multi-Drug Resistant Organisms: None Reported Past Surgical History: Adenoidectomy, Heart Catheterization With Stent, Tonsillectomy Additional Past Surgical History / Comment(s): turp, thyroidectomy , prostatectomy, colonoscopy/polypectomy Past Anesthesia/Blood Transfusion Reactions: No Reported Reaction Additional Past Anesthesia/Blood Transfusion Reaction / Comment(s): blood transfusion-no reaction Date of Last Stent Placement:: unk Past Psychological History: Depression Additional Psychological History / Comment(s): PT LIVES AT [facility] WITH HIS CRISTIAN. RECEIVED HOME CARE SERVICES [facility] Smoking Status: Former smoker Past Alcohol Use History: Occasional Additional Past Alcohol Use History / Comment(s): in past Occasionally smokes a cigar and occ drink- none now. Past Drug Use History: None Reported - Past Family History Mother Family Medical History: Cancer Additional Family Medical History / Comment(s): Breast CA Father Family Medical History: Coronary Artery Disease (CAD) Sister(s) Family Medical History: Blood Disorder, Cancer Additional Family Medical History / Comment(s): Breast CA and blood CA General Exam Limitations: altered mental status General appearance: alert, in distress, obese Head exam: Present: atraumatic, normocephalic, normal inspection Eye exam: Present: normal appearance, PERRL, EOMI. Absent: scleral icterus, conjunctival injection, periorbital swelling ENT exam: Present: mucous membranes dry, mucous membranes moist Neck exam: Present: normal inspection. Absent: tenderness, meningismus, lymphadenopathy Respiratory exam: Present: normal lung sounds bilaterally, respiratory distress , rales, accessory muscle use, decreased breath sounds, prolonged expiratory. Absent: wheezes, rhonchi, stridor Cardiovascular Exam: Present: regular rate, normal rhythm, normal heart sounds. Absent: systolic murmur, diastolic murmur, rubs, gallop, clicks GI/Abdominal exam: Present: soft, normal bowel sounds. Absent: distended, tenderness, guarding, rebound, rigid Extremities exam: Present: normal inspection, full ROM, normal capillary refill. Absent: tenderness, pedal edema, joint swelling, calf tenderness Back exam: Present: normal inspection Neurological exam: Present: alert, oriented X3, CN II-XII intact Psychiatric exam: Present: normal affect, normal mood Skin exam: Present: warm, dry, intact, normal color. Absent: rash Course Vital Signs 06/07/16 06/07/16 18:01 18:56 Temperature 97.4 F L Pulse Rate 70 84 Respiratory 24 22 Rate Blood Pressure 88/54 95/51 O2 Sat by Pulse 97 94 L Oximetry - Reevaluation(s) Reevaluation #1: 06/07/16 19:32 Patient's medical records thoroughly reviewed, patient showing no critical improvement EKG Findings - EKG Comments: EKG Findings:: EKG shows atrial fibrillation rate of 73, QRS 116, QTc 442 Medical Decision Making - Medical Decision Making 86 seen in the ER with Demario Dumont medical history, CHF renal failure dehydration, recurrent urinary tract infection and altered mental status secondary to dementia as well as medical issues. Patient will be admitted. - Lab Data Result diagrams: 06/07/16 17:59 06/07/16 17:59 Lab Results 06/07/16 06/07/16 06/07/16 Range/Units 17:59 17:59 17:59 WBC 64.2 H* (3.8-10.6) k/uL RBC 2.16 L (4.30-5.90) m/uL Hgb 8.2 L (13.0-17.5) gm/dL Hct 26.2 L (39.0-53.0) % MCV 120.9 H (80.0-100.0) fL MCH 38.1 H (25.0-35.0) pg MCHC 31.5 (31.0-37.0) g/dL RDW 19.5 H (11.5-15.5) % Plt Count 73 L (150-450) k/uL Neutrophils % (Manual) 74.5 % Band Neutrophils % 6.5 % Lymphocytes % (Manual) 3.0 % Monocytes % (Manual) 10.0 % Eosinophils % (Manual) 0.5 % Metamyelocytes % 4.5 % Myelocytes % 1.0 % Neutrophils # (Manual) 52.0 H (1.3-7.7) k/uL Lymphocytes # (Manual) 1.9 (1.0-4.8) k/uL Monocytes # (Manual) 6.4 H (0-1.0) k/uL Eosinophils # (Manual) 0.3 (0-0.7) k/uL Nucleated RBCs 0 (0-0) /100 WBC Polychromasia Present Hypochromasia Moderate Poikilocytosis (manual Present Anisocytosis Slight Macrocytosis Marked PT (9.0-12.0) sec INR (<1.1) APTT (22.0-30.0) sec Sodium 144 (137-145) mmol/L Potassium 5.3 H (3.5-5.1) mmol/L Chloride 110 H (98-107) mmol/L Carbon Dioxide 20 L (22-30) mmol/L Anion Gap 14 mmol/L BUN 49 H (9-20) mg/dL Creatinine 3.12 H (0.66-1.25) mg/dL Est GFR (MDRD) Af Amer 23 (>60 ml/min/1.73 sqM) Est GFR (MDRD) Non-Af 19 (>60 ml/min/1.73 sqM) Glucose 99 (74-99) mg/dL Calcium 8.6 (8.4-10.2) mg/dL Phosphorus 6.1 H (2.5-4.5) mg/dL Magnesium 1.8 (1.6-2.3) mg/dL Total Bilirubin 0.8 (0.2-1.3) mg/dL AST 22 (17-59) U/L ALT 18 L (21-72) U/L Alkaline Phosphatase 139 H (38-126) U/L Total Creatine Kinase 34 L (55-170) U/L CK-MB (CK-2) 1.4 (0.0-2.4) ng/mL CK-MB (CK-2) Rel Index 4.1 Troponin I 0.016 (0.000-0.034) ng/mL NT-Pro-B Natriuret Pep pg/mL Total Protein 6.2 L (6.3-8.2) g/dL Albumin 3.4 L (3.5-5.0) g/dL 06/07/16 06/07/16 Range/Units 17:59 17:59 WBC (3.8-10.6) k/uL RBC (4.30-5.90) m/uL Hgb (13.0-17.5) gm/dL Hct (39.0-53.0) % MCV (80.0-100.0) fL MCH (25.0-35.0) pg MCHC (31.0-37.0) g/dL RDW (11.5-15.5) % Plt Count (150-450) k/uL Neutrophils % (Manual) % Band Neutrophils % % Lymphocytes % (Manual) % Monocytes % (Manual) % Eosinophils % (Manual) % Metamyelocytes % % Myelocytes % % Neutrophils # (Manual) (1.3-7.7) k/uL Lymphocytes # (Manual) (1.0-4.8) k/uL Monocytes # (Manual) (0-1.0) k/uL Eosinophils # (Manual) (0-0.7) k/uL Nucleated RBCs (0-0) /100 WBC Polychromasia Hypochromasia Poikilocytosis (manual Anisocytosis Macrocytosis PT 27.5 H (9.0-12.0) sec INR 2.8 (<1.1) APTT 31.3 H (22.0-30.0) sec Sodium (137-145) mmol/L Potassium (3.5-5.1) mmol/L Chloride (98-107) mmol/L Carbon Dioxide (22-30) mmol/L Anion Gap mmol/L BUN (9-20) mg/dL Creatinine (0.66-1.25) mg/dL Est GFR (MDRD) Af Amer (>60 ml/min/1.73 sqM) Est GFR (MDRD) Non-Af (>60 ml/min/1.73 sqM) Glucose (74-99) mg/dL Calcium (8.4-10.2) mg/dL Phosphorus (2.5-4.5) mg/dL Magnesium (1.6-2.3) mg/dL Total Bilirubin (0.2-1.3) mg/dL AST (17-59) U/L ALT (21-72) U/L Alkaline Phosphatase (38-126) U/L Total Creatine Kinase (55-170) U/L CK-MB (CK-2) (0.0-2.4) ng/mL CK-MB (CK-2) Rel Index Troponin I (0.000-0.034) ng/mL NT-Pro-B Natriuret Pep 94672 pg/mL Total Protein (6.3-8.2) g/dL Albumin (3.5-5.0) g/dL Disposition Clinical Impression: Altered mental status, CHF (congestive heart failure), Failure to thrive, UTI ( urinary tract infection), Dehydration, ARF (acute renal failure), Delirium due to general medical condition, Diastolic congestive heart failure Disposition: ADMITTED IP TO THIS [facility] Condition: Serious Referrals: Loren Bailey MD [Primary Care Provider] - 1-2 days
[2016-06-07 18:17] LABS: Anisocytosis Slight; CH 36.9; CHCM 30.8; HCT 26.2 % (39.0-53.0); HDW 2.96; HGB 8.2 gm/dL (13.0-17.5); Hypochromasia Moderate; Immature Gran Flag Marked; MCH 38.1 pg (25.0-35.0); MCHC 31.5 g/dL (31.0-37.0); MCV 120.9 fL (80.0-100.0); Macrocytosis Marked; Mean Platelet Volume 7.3; RBC 2.16 m/uL (4.30-5.90); RDW 19.5 % (11.5-15.5); WBC (Perox) 66.74
[2016-06-07 18:20] LABS: WBC 64.2 k/uL (3.8-10.6)
[2016-06-07 18:24] LABS: INR 2.8 (<1.1); Partial Thromboplastin Time 31.3 sec (22.0-30.0); Prothrombin Time 27.5 sec (9.0-12.0)
[2016-06-07 18:32] LABS: Calcium 8.6 mg/dL (8.4-10.2); Magnesium 1.8 mg/dL (1.6-2.3); Phosphorous 6.1 mg/dL (2.5-4.5); Potassium 5.3 mmol/L (3.5-5.1); Total Bilirubin 0.8 mg/dL (0.2-1.3); Total Protein 6.2 g/dL (6.3-8.2)
[2016-06-07 18:47] LABS: Add Differential Manual Differential
[2016-06-07 18:50] LABS: Band Neutrophils % 6.5 %; Creatine Kinase MB 1.4 ng/mL (0.0-2.4); Metamyelocytes % 4.5 %; Nucleated Red Blood Cells 0 /100 WBC (0-0); Polychromasia Present; Total Cells Counted 200; Troponin I 0.016 ng/mL (0.000-0.034)
[2016-06-07] MEDS ORDERED: NITROGLYCERIN SL TABS 0.4 MG TAB SUBLINGUAL PRN (19:36)
--- NOTE | 2016-06-07 19:37 | XR ---
EXAMINATION TYPE: XR chest 2V DATE OF EXAM: 06/07/2016 6:37 PM COMPARISON: 05/31/2016 HISTORY: Weakness and dyspnea TECHNIQUE: Frontal and lateral views of the chest are obtained. FINDINGS: Previously seen prominent pleural-parenchymal changes bilaterally are again noted - without definite interval change. Mild/moderate enlargement of the cardiac silhouette is also redemonstrated and unchanged. No abnormal gas collections are evident. Lateral view shows blunted costophrenic angles consistent with small pleural effusions. IMPRESSION: STABLE APPEARANCE WITHOUT DEFINITE INTERVAL CHANGE WHEN COMPARED TO THE CHEST RADIOGRAPH OF 05/31/2016 .
[2016-06-07] MEDS: ASPIRIN 81 MG CHEW PO STA ×2 (19:51→19:53)
[2016-06-07] MEDS ORDERED: HYDROcodone/APAP 5-325MG 1 EACH TAB PO PRN (23:25)
[2016-06-07] MEDS ORDERED: traMADol 50 MG TAB PO PRN (23:25)
[2016-06-07] MEDS ORDERED: BACLOFEN 10 MG TAB PO PRN (23:25)
[2016-06-07] MEDS ORDERED: FUROSEMIDE 40 MG TAB PO SCH (23:30)
[2016-06-07] MEDS ORDERED: POTASSIUM CHLORIDE ER 10 MEQ TAB.ER.PRT PO SCH (23:30)
[2016-06-07] MEDS ORDERED: HYDROXYUREA 500 MG CAP PO SCH (23:30)
[2016-06-07] MEDS ORDERED: WARFARIN 3 MG TAB PO SCH (23:30)
[2016-06-08] MEDS: MIRTAZAPINE 15 MG TAB PO SCH ×2 (01:53→20:31)
[2016-06-08] MEDS: CARVEDILOL 6.25 MG TAB PO SCH ×3 (01:53→20:31)
[2016-06-08] MEDS: DONEPEZIL 5 MG TAB PO SCH ×2 (01:53→20:31)
[2016-06-08] MEDS: ALBUTEROL NEBULIZED 2.5 MG/3 ML INHALATION SCH ×4 (07:32→21:00)
[2016-06-08] MEDS: BUDESONIDE 1 MG/2 ML NEBU INHALATION SCH ×2 (07:33→21:00)
[2016-06-08] MEDS ORDERED: LISINOPRIL 5 MG TAB PO SCH (09:00)
[2016-06-08] MEDS ORDERED: FUROSEMIDE 10 MG/ML 4 ML VIAL IV SCH (09:00)
[2016-06-08] MEDS ORDERED: FAMOTIDINE 20 MG TAB PO SCH (09:00)
[2016-06-08] MEDS ORDERED: ALLOPURINOL 100 MG TAB PO SCH (09:00)
[2016-06-08] MEDS: ASPIRIN 325 MG TAB PO SCH (09:13)
[2016-06-08] MEDS: LEVOTHYROXINE 75 MCG TAB PO SCH (09:14)
[2016-06-08 11:36] LABS: Calcium 8.8 mg/dL (8.4-10.2); Total Bilirubin 0.8 mg/dL (0.2-1.3)
[2016-06-08] MEDS ORDERED: SODIUM CHLORIDE 0.9% 1,000 ML IV SCH (13:00)
[2016-06-08] MEDS ORDERED: SODIUM POLYSTYRENE SULFONATE 15 GM/60 ML BOTTLE PO STA (13:13)
[2016-06-08 14:02] VITALS: BMI 29.3
--- NOTE | 2016-06-08 14:17 | CONS ---
DATE OF CONSULTATION: 06/08/2016 REASON FOR CONSULT: Renal failure. HISTORY OF PRESENT ILLNESS: Patient is an 86-year-old male who was admitted to the hospital with complaints of shortness of breath and some altered mentation as well. He was recently discharged from the hospital on 06/02/2016. At that time he was admitted with mental status changes, acute kidney injury. He was hydrated at that time. His serum creatinine was at about 2.4 mg/dL. We have a prior creatinine in February of 2016 at 1.48 and 1.6 mg/dL. Patient had been on fluids during his last admission and it is thought that his renal function improved significantly. He is currently voiding. Blood pressure is not low with occasional readings of 91 to 95. Patient had been on CHELSEY inhibitors and diuretics at the time of admission which is currently on hold now. He is maintained on IV fluids at 75 mL an hour. PAST MEDICAL HISTORY: Significant for A. fib, hypertension, coronary artery disease, hypothyroidism, chronic myeloproliferative disorder, history of prostatic CA, congenitally single kidney, diastolic dysfunction, hypothyroidism. PAST SURGICAL HISTORY: Adenoidectomy, cardiac catheterization with coronary stent placement, tonsillectomy, thyroidectomy, TURP, prostatectomy, colonoscopy, polypectomy. SOCIAL HISTORY: Patient is an ex-smoker. No history of drug abuse or alcohol abuse. Medications prior to admission included Aricept, vitamin D, Synthroid, [place], Hydrea, Zestril, Coumadin, Pulmicort, Coreg, Uloric, Ultram, Lasix. ALLERGIES: None. REVIEW OF SYSTEMS: As per HPI. Other systems negative. On examination, patient is comfortable, awake. He is not in any acute distress. Blood pressure is 122/74, heart rate 79 per minute. He is afebrile. Examination of the heart, S1 and S2. Examination of the lungs, bilateral breath sounds are heard. Decreased breath sounds at the bases. Abdomen is soft, nontender. Examination of lower extremities shows no significant edema. HAND PATTERN MARKER exam is grossly intact. Patient is moving all 4 extremities. Labs show sodium 143, potassium 6.0, serum creatinine as high as 3.36. Hemoglobin at 8.2 g/dL. ASSESSMENT: 1. Acute kidney injury, rule out urine retention. Patient also is hypovolemic, agree with IV fluids. Will continue with IV fluids for now. 2. Hyperkalemia associated with acute kidney injury, rule out urine retention. Will give a dose of Kayexalate, continue with oral Lasix which will help with the hyperkalemia. Will discontinuation the CHELSEY inhibitors and the potassium and repeat labs today. 3. Chronic myeloproliferative disorder. 4. Mild dementia. 5. Chronic atrial fibrillation on long-term anticoagulation. 6. History of prostatic carcinoma, status post prostatectomy and orchiectomy. PLAN: Discontinue lisinopril, DC potassium, Kayexalate x1, continue IV fluids. Check bladder scan. Repeat labs in a.m. Check urinalysis as well. Thank you for this consultation. Will continue to follow the patient with you during his hospitalization.
--- NOTE | 2016-06-08 16:35 | CONS ---
DATE OF CONSULTATION: This patient is seen for cardiac evaluation. This patient was just recently discharged from the hospital when he was admitted with change in mental status. Patient was treated for heart failure, renal failure and possible urinary tract infection; however, urine culture was negative at that time. Subsequently patient was discharged home. Patient was seen in Dr. Bailey's office and he was in respiratory distress. His oxygen saturation was 82%, so the patient was admitted through the emergency room. He is feeling he is more alert and awake. His respirations are not labored. Patient had some nonproductive cough. During the last admission, patient did have evidence of bilateral lung infiltrates and possible heart failure. Echocardiogram revealed normal left ventricular systolic function, and right-sided pressures were elevated; it was thought that the patient could have some underlying diastolic dysfunction. Patient has a history of chronic atrial fibrillation and because of that, the diastolic dysfunction is difficult to assess. Patient has a history of myeloproliferative disorder and has chronic anemia. Please refer to the previous consultation for further details of the past history. Patient's home medications are reviewed. Physical examination at present reveals an 86-year-old gentleman who does not appear to be in any acute distress. Patient's heart rate is 70 to 80 per minute. Patient is afebrile. Blood pressure is 140/66 mmHg. Oxygen saturation is now 95%. Head/ENT examination is negative. Neck is supple. No significant increase in jugular venous pressure is noted in the sitting position. First and second heart sounds are normal. Lungs reveal a few bilateral basal rales. Abdomen is soft. EXTREMITIES: There is 1+ leg edema. Patient's BUN is now 53 and the creatinine has increased to 3.36. Patient's admitting creatinine on 05/31 was 2.42. INR is 2.8. White count is 64,000. Hemoglobin is 8.2. Patient's chest x-ray shows bilateral patchy infiltrates without any definite pulmonary venous congestion. Patient had a CT scan done in February of 2016 which showed evidence of possibly some interstitial pulmonary fibrosis. FINAL IMPRESSION: This patient is admitted with respiratory distress. It appears that this most likely is secondary to underlying chronic lung disease and maybe pulmonary fibrosis. There is no definite evidence of any significant left ventricular failure on the chest x-ray. Patient has a chronically elevated BNP level which could be secondary to cor pulmonale and some degree of right-sided heart failure as well as patient's progressive renal failure. Patient's intravascular volume on the left side is difficult to really assess. In view of the patient's progressive renal failure, I will decrease the dose of diuretics to Lasix only 40 mg daily and would recommend giving the patient fluid at 75 mL/hour. We will repeat the non-contrast CT of the chest to assess the patient's status of the lung. I would recommend pulmonary evaluation. Patient's overall prognosis is guarded.
--- NOTE | 2016-06-08 17:19 | CT ---
EXAMINATION TYPE: CT chest wo con DATE OF EXAM: 06/08/2016 5:11 PM COMPARISON: 02/23/2016 HISTORY: Respiratory distress. CT DLP: 768.[address] of the chest was performed with lung and mediastinal window settings submitted. The la ck of contrast limits evaluation of the vascular, mediastinal and parenchymal structures including th e upper abdomen. LUNGS: New Bilateral effusions are noted measuring approximately 5.15 cm AP dimension on the right and appro ximately 2.5 cm AP dimension on the left. There is mild associated compressive atelectasis. There is a patchy infiltrate within the right upper lobe. Calcified pleural plaques persist. MEDIASTINUM/LIVIA: Thoracic aorta is of normal caliber with limited evaluation given lack of contrast . The heart is mildly enlarged with small pericardial effusion. No evidence for mediastinal mass. N o lymph nodes greater than 1cm. UPPER ABDOMEN: No significant abnormality is seen. OTHER: No significant other abnormality. IMPRESSION: 1. Right upper lobe infiltrate. Correlate for pneumonia or a focus of edema. 2. Bilateral pleural effusions which have occurred in the interval. 3. Calcified pleural plaques.
[2016-06-08 18:37] LABS: Appearance,Urine Cloudy (Clear); Bilirubin,Urine Negative (Negative); Glucose,Urine (UA) Negative (Negative); Ketones,Urine Negative (Negative); Leukocyte Esterase,Urine Small (Negative); Mucus,Urine Many /hpf; Nitrite,Urine Negative (Negative); PH, Urine 5.5 (5.0-8.0); Particle Count 17279; Protein,Urine 2+ (Negative); RBC,Urine >182 /hpf (0-5); Specific Gravity,Urine 1.013 (1.001-1.035); UA Billing (MACRO vs. MICRO) MICRO; WBC,Urine 27 /hpf (0-5)
--- NOTE | 2016-06-08 18:39 | P.CONS ---
History of Present Illness - Reason for Consult Consult date: 06/08/16 MPD Requesting physician: Bon Roman - Chief Complaint AMS, CHF - History of Present Illness Mr. Whiting is a very pleasant male pt of Dr. Francisco who was noted to have progressive leukopenia-WBC 12.1 in July of 2015, 16.4 on 09/22, and 36.4 on , diff 11/12/15 revealed a left shift with increased bands and some metamyelocytes seen, neutrophilia was predominant with Hgb and plt WNL. He was seen in November for further evaluation and recommendations. Thorough H&P and additional labs were ordered. BCR-ABL, PDGFR were negative, CRP, ferritin and LAP were increased so reactive condition and certain MPDs were considered. 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 All gene markers were negative, felt that he had an unclassifiable MPD with chronic neutrophilic leukemia a possibility. He was started on Hydrea 500 BID in Jan 2016. He required dose adjustments for symptoms of persistent nausea, decreased appetite , fatigue and dizziness, he also required a few PRBC transfusions. Pt has been having CHF exacerbations with acute on chronic renal failure. He was just seen in the office 2 days ago, plan was for a unit of blood yesterday, pt was contacted with concerns of elevated BUN and creatnine on CMP drawn in office and she was told to call 911 if pt condition worsened. Pt was brought to hospital with AMS and hypoxia. When seen he is sitting in the chair, he is very lucid, denies chest pain, SOB, nausea or pain. Review of Systems All systems: negative Past Medical History Past Medical History: Atrial Fibrillation, Blood Disorder, Heart Failure, Hypertension, Myocardial Infarction ([place]), Thyroid Disorder Additional Past Medical History / Comment(s): Chronic myeloproliferative disorder, asbestosis, congenital single kidney, prostate cancer, chronic diastolic heart failure, hypothyroidism Last Myocardial Infarction Date:: 1994 History of Any Multi-Drug Resistant Organisms: None Reported Past Surgical History: Adenoidectomy, Heart Catheterization With Stent, Tonsillectomy Additional Past Surgical History / Comment(s): turp, thyroidectomy , prostatectomy, colonoscopy/polypectomy Past Anesthesia/Blood Transfusion Reactions: No Reported Reaction Additional Past Anesthesia/Blood Transfusion Reaction / Comm: blood transfusion- no reaction Date of Last Stent Placement:: unk Past Psychological History: Depression Additional Psychological History / Comment(s): PT LIVES AT [facility] WITH HIS CRISTIAN. RECEIVED HOME CARE SERVICES "[employer] Smoking Status: Never smoker Past Alcohol Use History: Occasional Additional Past Alcohol Use History / Comment(s): in past Occasionally smokes a cigar and occ drink- none now. Past Drug Use History: None Reported - Past Family History Mother Family Medical History: Cancer Additional Family Medical History / Comment(s): Breast CA Father Family Medical History: Coronary Artery Disease (CAD) Sister(s) Family Medical History: Blood Disorder, Cancer Additional Family Medical History / Comment(s): Breast CA and blood CA Medications and Allergies Home Medications Medication Instructions Recorded Confirmed Type Donepezil [Aricept] 5 mg PO HS 02/03/16 06/07/16 History Ergocalciferol (Vitamin D2) 50,000 unit PO APARICIO 02/03/16 06/07/16 History [Drisdol] Levothyroxine Sodium [Levo-T] 75 mcg PO DAILY 02/03/16 06/07/16 History HYDROcodone/APAP 5-325MG [Mcdonald 1 tab PO Q6HR PRN 02/22/16 06/07/16 History 5-325] Hydroxyurea [Hydrea] 500 mg PO W/SUPPER 02/22/16 06/07/16 History Lisinopril [Zestril] 2.5 mg PO DAILY 02/22/16 06/07/16 History Warfarin Sodium 6 mg PO TUTHSA 02/22/16 06/07/16 History Albuterol Nebulized [Ventolin 2.5 mg INHALATION RT-QID 05/29/16 06/07/16 History Nebulized] Baclofen [Lioresal] 10 mg PO BID PRN 05/29/16 06/07/16 History Budesonide [Pulmicort] 1 mg INHALATION RT-BID 05/29/16 06/07/16 History Carvedilol [Coreg] 6.25 mg PO BID 05/29/16 06/07/16 History Febuxostat [Uloric] 40 mg PO DAILY 05/29/16 06/07/16 History Mirtazapine [Remeron] 15 mg PO HS 05/29/16 06/07/16 History SILVER sulfADIAZINE CREAM 1 applic TOPICAL BID PRN 05/29/16 06/07/16 History [Silvadene Cream] traMADol HCL [Ultram] 50 mg PO TID PRN 05/29/16 06/07/16 History Warfarin Sodium [Coumadin] 3 mg PO MOWEFR 06/07/16 06/07/16 History Allergies Allergy/AdvReac Type Severity Reaction Status Date / Time No Known Allergies Allergy Verified 06/07/16 18:23 Physical Exam Vitals: Vital Signs Temp Pulse Pulse Resp BP BP Pulse Ox 06/08/16 16:47 84 06/08/16 16:33 82 06/08/16 15:00 97.1 F L 81 20 108/48 90 L 06/08/16 11:56 80 06/08/16 11:44 80 06/08/16 07:43 84 06/08/16 07:34 82 06/08/16 07:00 97.2 F L 79 22 123/74 90 L 06/07/16 23:00 97.2 F L 83 20 140/66 95 06/07/16 20:53 96.3 F L 62 17 91/50 82 L 06/07/16 19:50 97.8 F 85 24 94/54 94 L Intake and Output 06/08/16 06/08/16 06/08/16 06:59 14:59 22:59 Output Total 2 142 Balance -2 -142 Output: Urine 50 Post Void Residual 92 Stool 2 Other: Voiding Method Urinal # Voids 1 Weight 95.5 kg Patient Weight 06/09/16 06:59 Weight 95.5 kg - Constitutional General appearance: average body habitus, cooperative, no acute distress - Respiratory Respiratory: bilateral: CTA - Cardiovascular Heart sounds: normal: S1, S2 Abnormal Heart Sounds: systolic murmur - Gastrointestinal General gastrointestinal: normal bowel sounds, soft - Neurologic Neurologic: CNII-XII intact - Musculoskeletal Musculoskeletal: strength equal bilaterally - Psychiatric Psychiatric: A&O x's 3, appropriate affect, intact judgment & insight Results CBC & Chem 7: 06/07/16 17:59 06/08/16 11:00 Labs: Abnormal Lab Results - Last 24 Hours (Table) 06/08/16 Range/Units 11:00 Potassium 6.0 H (3.5-5.1) mmol/L Chloride 110 H (98-107) mmol/L Carbon Dioxide 21 L (22-30) mmol/L BUN 53 H (9-20) mg/dL Creatinine 3.36 H (0.66-1.25) mg/dL Glucose 124 H (74-99) mg/dL Alkaline Phosphatase 168 H (38-126) U/L Total Protein 6.0 L (6.3-8.2) g/dL Albumin 3.3 L (3.5-5.0) g/dL Chest x-ray: report reviewed CT scan - chest: report reviewed Assessment and Plan (1) Myeloproliferative disorder Narrative/Plan: Discussed case with Dr. Webb, pt has decided on hospice. I confirmed pt wishes , his was present. Pt is very lucid during our conversation. Hydrea discontinued permanently. Status: Chronic
[2016-06-08] MEDS ORDERED: MORPHINE ORAL SOLN 20 MG/1 ML ORAL SYRINGE PO PRN (21:54)
[2016-06-08] MEDS ORDERED: LORazepam 0.5 MG TAB PO PRN (21:55)
[2016-06-08] MEDS ORDERED: WARFARIN 3 MG TAB PO SCH (23:25)
[2016-06-09] MEDS ORDERED: HALOPERIDOL LACTATE 5 MG/ML 1 ML VIAL IM PRN (01:00)
[2016-06-09] MEDS: BUDESONIDE 1 MG/2 ML NEBU INHALATION SCH (07:42)
[2016-06-09] MEDS: ALBUTEROL NEBULIZED 2.5 MG/3 ML INHALATION SCH ×3 (07:42→16:55)
[2016-06-09] MEDS ORDERED: FUROSEMIDE 40 MG TAB PO SCH (09:00)
[2016-06-09 09:48] LABS: Calcium 8.7 mg/dL (8.4-10.2); Potassium 5.5 mmol/L (3.5-5.1)
[2016-06-09] MEDS: CARVEDILOL 6.25 MG TAB PO SCH (10:00)
[2016-06-09] MEDS: LEVOTHYROXINE 75 MCG TAB PO SCH (10:03)
[2016-06-09] MEDS: ASPIRIN 325 MG TAB PO SCH (10:03)
[2016-06-09 15:21] VITALS: BP 142/65; RESP 16; TEMP 97.8
[2016-06-09 16:58] VITALS: PULSE 86
--- NOTE | 2016-06-09 18:31 | P.HPIM ---
History of Present Illness H&P Date: 06/08/16 Chief Complaint: Shortness of breath weight gain CHF This is an 86-year-old gentleman patient of Dr. Bailey and Dr. Francisco. His ovens supervisor is Dr. Arevalo. He has underlying history offchronic myeloproliferative disorder, hypothyroidism, prostate cancer, chronic diastolic heart failure, chronic atrial fibrillation, hypertension, asbestosis, congenital single kidney, dementia. Patient was in his usual state of health until a couple days ago when he started having mental status changes. He does have underlying dementia and is always confused and needs direction to complete simple tasks but this worsened. He was last admitted from our facility till secondary to: 1. Metabolic encephalopathy secondary to urinary tract infection and sepsis with history of mild bladder incontinence. 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 Acute kidney injury due to acute tubular necrosis with chronic kidney disease stage III and congenital single kidney. 3. Myeloproliferative disorder. 4. Chronic atrial fibrillation on long-term anticoagulation with Coumadin 5. Chronic diastolic heart failure. 6. Hypertension 7. Hypothyroidism 8. Mild dementia 9. Overactive bladder 10. Hyperuricemia 11. Asbestosis with pleural plaques 12. Patient only has unilateral kidney 13. Leukocytosis most likely secondary to hematology disorder and sepsis. 14. Splenomegaly . He was home at [facility], he gained approximately 10 pounds over the past 4 days after he had received 1 unit of packed red blood cell 5 days prior to admission, also Lasix was given at that time.. He was seen by Dr. Bailey today for follow-up visit from the hospital, he was in respiratory distress, pulse ox was 82% and he was subsequently admitted to the emergency room. He presented to emergency room with increasing shortness of breath, he was found to be in CHF exacerbation with bilateral pleural effusion which is new, 5.1 cm on the right in 2.5 cm in the left, compressive atelectasis, patchy infiltrate within the right upper lobe, family members is at bedside for which they have strongly considered comfort care measures during his last admission however this increasing difficulty this time, the patient wanted to be made hospice with no further intervention his wishes are respected if family members are in agreement by mouth 80 daughter is there to support father's decision. Review of Systems Constitutional: Reports as per HPI, Denies anorexia, Denies chills, Denies chronic headaches, Denies chronic pain, Denies daytime sleepiness, Denies fatigue, Denies fever, Denies lethargy, Denies malaise, Denies night sweats, Denies poor appetite, Denies sweats, Denies weakness, Denies weight gain, Denies weight loss Ears, nose, mouth and throat: Reports as per HPI, Denies ant. neck pain, Denies bleeding gums, Denies dental pain, Denies dysphagia, Denies epistaxis, Denies headache, Denies hoarseness, Denies mouth pain, Denies nasal congestion, Denies nasal discharge, Denies neck fullness/pressure, Denies neck lump, Denies nose pain, Denies odynophagia, Denies post-nasal drip, Denies sinus pain, Denies sinus pressure, Denies swelling in mouth, Denies swelling in throat, Denies sore throat, Denies vertigo, Denies voice changes Cardiovascular: Reports as per HPI, Reports decreased exercise tolerance, Reports dyspnea on exertion, Reports leg edema, Reports lightheadedness, Reports shortness of breath, Denies chest pain, Denies claudication, Denies edema, Denies high blood pressure, Denies irregular heart beat, Denies orthopnea , Denies palpitations, Denies paroxysmal nocturnal dyspnea, Denies phlebitis, Denies rapid heart beat, Denies syncope Respiratory: Reports as per HPI, Reports cough, Reports cough with sputum, Reports dyspnea, Reports respiratory infections, Reports wheezing, Denies congestion, Denies excessive sputum, Denies hemoptysis, Denies home oxygen, Denies pain, Denies pain on inspiration, Denies pleurisy, Denies sleep apnea, Denies snoring Genitourinary: Reports as per HPI, Denies decreased libido, Denies difficulties fathering child, Denies discharge, Denies dysuria, Denies erectile dysfunction, Denies flank pain, Denies genital pain, Denies genital sores, Denies hematuria, Denies impotence, Denies incontinence, Denies kidney stones, Denies nocturia, Denies polyuria, Denies testicular lump, Denies testicular pain, Denies urinary frequency, Denies urinary hesitancy, Denies urinary retention Integumentary: Reports as per HPI Neurological: Reports weakness Psychiatric: Reports as per HPI, Denies anhedonia, Denies anxiety, Denies anxiety attacks, Denies change in appetite, Denies change in libido, Denies change in sleep habits, Denies confusion, Denies depression, Denies difficulty concentrating, Denies disorientation, Denies hallucinations, Denies hopelessness , Denies hypersomnia, Denies insomnia, Denies irritability, Denies memory loss, Denies mood swings, Denies paranoia, Denies sadness/tearfulness, Denies sleep disturbances, Denies suicidal ideation Endocrine: Reports as per HPI, Denies cold intolerance, Denies deepening of the voice, Denies excessive sweating, Denies excessive thirst, Denies fatigue, Denies flushing, Denies heat intolerance, Denies high blood sugars, Denies increase in ring/shoe/hat size, Denies low blood sugars, Denies nocturia, Denies palpitations, Denies polydipsia, Denies polyphagia, Denies polyuria, Denies proptosis, Denies recent glucocorticoid use, Denies thyroid mass, Denies weight change Hematologic/Lymphatic: Reports as per HPI Allergic/Immunologic: Reports as per HPI, Denies allergic rhinitis, Denies anaphylaxis, Denies angioedema, Denies gluten intolerance, Denies persistent infections, Denies seasonal allergies, Denies urticaria, Denies wheezing Past Medical History Past Medical History: Atrial Fibrillation, Blood Disorder, Heart Failure, Hypertension, Myocardial Infarction ([place]), Thyroid Disorder Additional Past Medical History / Comment(s): Chronic myeloproliferative disorder, asbestosis, congenital single kidney, prostate cancer, chronic diastolic heart failure, hypothyroidism Last Myocardial Infarction Date:: 1994 History of Any Multi-Drug Resistant Organisms: None Reported Past Surgical History: Adenoidectomy, Heart Catheterization With Stent, Tonsillectomy Additional Past Surgical History / Comment(s): turp, thyroidectomy , prostatectomy, colonoscopy/polypectomy Past Anesthesia/Blood Transfusion Reactions: No Reported Reaction Additional Past Anesthesia/Blood Transfusion Reaction / Comment(s): blood transfusion-no reaction Date of Last Stent Placement:: unk Past Psychological History: Depression Additional Psychological History / Comment(s): PT [facility]IV[facility] AT [facility] WITH HIS CRISTIAN. RECEIVED HOME CARE SERVICES "[employer] Smoking Status: Never smoker Past Alcohol Use History: Occasional Additional Past Alcohol Use History / Comment(s): in past Occasionally smokes a cigar and occ drink- none now. Past Drug Use History: None Reported - Past Family History Mother Family Medical History: Cancer Additional Family Medical History / Comment(s): Breast CA Father Family Medical History: Coronary Artery Disease (CAD) Sister(s) Family Medical History: Blood Disorder, Cancer Additional Family Medical History / Comment(s): Breast CA and blood CA Medications and Allergies Home Medications Medication Instructions Recorded Confirmed Type Donepezil [Aricept] 5 mg PO HS 02/03/16 06/07/16 History Ergocalciferol (Vitamin D2) 50,000 unit PO APARICIO 02/03/16 06/07/16 History [Drisdol] Levothyroxine Sodium [Levo-T] 75 mcg PO DAILY 02/03/16 06/07/16 History HYDROcodone/APAP 5-325MG [Colby 1 tab PO Q6HR PRN 02/22/16 06/07/16 History 5-325] Hydroxyurea [Hydrea] 500 mg PO W/SUPPER 02/22/16 06/07/16 History Lisinopril [Zestril] 2.5 mg PO DAILY 02/22/16 06/07/16 History Warfarin Sodium 6 mg PO TUTHSA 02/22/16 06/07/16 History Albuterol Nebulized [Ventolin 2.5 mg INHALATION RT-QID 05/29/16 06/07/16 History Nebulized] Baclofen [Lioresal] 10 mg PO BID PRN 05/29/16 06/07/16 History Budesonide [Pulmicort] 1 mg INHALATION RT-BID 05/29/16 06/07/16 History Carvedilol [Coreg] 6.25 mg PO BID 05/29/16 06/07/16 History Febuxostat [Uloric] 40 mg PO DAILY 05/29/16 06/07/16 History Mirtazapine [Remeron] 15 mg PO HS 05/29/16 06/07/16 History SILVER sulfADIAZINE CREAM 1 applic TOPICAL BID PRN 05/29/16 06/07/16 History [Silvadene Cream] traMADol HCL [Ultram] 50 mg PO TID PRN 05/29/16 06/07/16 History Warfarin Sodium [Coumadin] 3 mg PO MOWEFR 06/07/16 06/07/16 History Allergies Allergy/AdvReac Type Severity Reaction Status Date / Time No Known Allergies Allergy Verified 06/07/16 18:23 Physical Exam Vitals: Vital Signs Temp Pulse Pulse Resp BP BP Pulse Ox 06/08/16 11:56 80 06/08/16 11:44 80 06/08/16 07:43 84 06/08/16 07:34 82 06/08/16 07:00 97.2 F L 79 22 123/74 90 L 06/07/16 23:00 97.2 F L 83 20 140/66 95 06/07/16 20:53 96.3 F L 62 17 91/50 82 L 06/07/16 19:50 97.8 F 85 24 94/54 94 L Intake and Output 06/07/16 06/08/16 06/08/16 22:59 06:59 14:59 Output Total 2 Balance -2 Output: Stool 2 Other: # Voids 1 1 Weight 95.5 kg 95.5 kg Patient Weight 06/09/16 06:59 Weight 95.5 kg - Constitutional General appearance: cooperative, no acute distress - EENT Eyes: anicteric sclerae, EOMI, PERRLA, dentition normal, normal appearance ENT: no hard of hearing, hearing grossly normal, NA/AT, normal oropharynx, no other, no pharyngeal erythema, no thrush, no tonsillar exudates, no tonsillar swelling - Neck Neck: no lymphadenopathy, normal ROM, no other, no rigidity, no stridor, no thyromegaly - Respiratory Respiratory: bilateral: CTA, diminished, negative: dullness, rales, prolonged expiration, prolonged inspiration - Cardiovascular Rhythm: regular Heart sounds: normal: S1, S2 Abnormal Heart Sounds: systolic murmur, no diastolic murmur, no rub, no S3 Gallop, no S4 Gallop, no click, no other - Gastrointestinal General gastrointestinal: normal bowel sounds, soft - Integumentary Integumentary: decreased turgor, normal - Neurologic Neurologic: CNII-XII intact - Musculoskeletal Musculoskeletal: generalized weakness, strength equal bilaterally - Psychiatric Psychiatric: A&O x's 3, appropriate affect, intact judgment & insight Results CBC & Chem 7: 06/07/16 17:59 06/08/16 11:00 Labs: Abnormal Lab Results - Last 24 Hours (Table) 03/02/17 Range/Units 11:00 Potassium 6.0 H (3.5-5.1) mmol/L Chloride 110 H (98-107) mmol/L Carbon Dioxide 21 L (22-30) mmol/L BUN 53 H (9-20) mg/dL Creatinine 3.36 H (0.66-1.25) mg/dL Glucose 124 H (74-99) mg/dL Alkaline Phosphatase 168 H (38-126) U/L Total Protein 6.0 L (6.3-8.2) g/dL Albumin 3.3 L (3.5-5.0) g/dL Laboratory Results WBC 64.2 k/uL (3.8-10.6) H* 06/07/16 17:59 RBC 2.16 m/uL (4.30-5.90) L 06/07/16 17:59 Hgb 8.2 gm/dL (13.0-17.5) L 06/07/16 17:59 Hct 26.2 % (39.0-53.0) L 06/07/16 17:59 MCV 120.9 fL (80.0-100.0) H 06/07/16 17:59 MCH 38.1 pg (25.0-35.0) H 06/07/16 17:59 MCHC 31.5 g/dL (31.0-37.0) 06/07/16 17:59 RDW 19.5 % (11.5-15.5) H 06/07/16 17:59 Plt Count 73 k/uL (150-450) L 06/07/16 17:59 Neutrophils % (Manual) 74.5 % 06/07/16 17:59 Band Neutrophils % 6.5 % 06/07/16 17:59 Lymphocytes % (Manual) 3.0 % 06/07/16 17:59 Monocytes % (Manual) 10.0 % 06/07/16 17:59 Eosinophils % (Manual) 0.5 % 06/07/16 17:59 Metamyelocytes % 4.5 % 06/07/16 17:59 Myelocytes % 1.0 % 06/07/16 17:59 Neutrophils # (Manual) 52.0 k/uL (1.3-7.7) H 06/07/16 17:59 Lymphocytes # (Manual) 1.9 k/uL (1.0-4.8) 06/07/16 17:59 Monocytes # (Manual) 6.4 k/uL (0-1.0) H 06/07/16 17:59 Eosinophils # (Manual) 0.3 k/uL (0-0.7) 06/07/16 17:59 Nucleated RBCs 0 /100 WBC (0-0) 06/07/16 17:59 Polychromasia Present 06/07/16 17:59 Hypochromasia Moderate 06/07/16 17:59 Poikilocytosis (manual Present 06/07/16 17:59 Anisocytosis Slight 06/07/16 17:59 Macrocytosis Marked 06/07/16 17:59 PT 27.5 sec (9.0-12.0) H 06/07/16 17:59 INR 2.8 (<1.1) 06/07/16 17:59 APTT 31.3 sec (22.0-30.0) H 06/07/16 17:59 Sodium 143 mmol/L (137-145) 06/08/16 11:00 Potassium 6.0 mmol/L (3.5-5.1) H 06/08/16 11:00 Chloride 110 mmol/L (98-107) H 06/08/16 11:00 Carbon Dioxide 21 mmol/L (22-30) L 06/08/16 11:00 Anion Gap 12 mmol/L 06/08/16 11:00 BUN 53 mg/dL (9-20) H 06/08/16 11:00 Creatinine 3.36 mg/dL (0.66-1.25) H 06/08/16 11:00 Est GFR (MDRD) Af Amer 21 (>60 ml/min/1.73 sqM) 06/08/16 11:00 Est GFR (MDRD) Non-Af 17 (>60 ml/min/1.73 sqM) 06/08/16 11:00 Glucose 124 mg/dL (74-99) H 06/08/16 11:00 Calcium 8.8 mg/dL (8.4-10.2) 06/08/16 11:00 Phosphorus 6.1 mg/dL (2.5-4.5) H 06/07/16 17:59 Magnesium 1.8 mg/dL (1.6-2.3) 06/07/16 17:59 Total Bilirubin 0.8 mg/dL (0.2-1.3) 06/08/16 11:00 AST 18 U/L (17-59) 06/08/16 11:00 ALT 21 U/L (21-72) 06/08/16 11:00 Alkaline Phosphatase 168 U/L (38-126) H 06/08/16 11:00 Total Creatine Kinase 34 U/L (55-170) L 06/07/16 17:59 CK-MB (CK-2) 1.4 ng/mL (0.0-2.4) 06/07/16 17:59 CK-MB (CK-2) Rel Index 4.1 06/07/16 17:59 Troponin I 0.016 ng/mL (0.000-0.034) 06/07/16 17:59 NT-Pro-B Natriuret Pep 57021 pg/mL 06/07/16 17:59 Total Protein 6.0 g/dL (6.3-8.2) L 06/08/16 11:00 Albumin 3.3 g/dL (3.5-5.0) L 06/08/16 11:00 Urine Color Light Red 06/08/16 17:45 Urine Appearance Cloudy (Clear) 06/08/16 17:45 Urine pH 5.5 (5.0-8.0) 06/08/16 17:45 Ur Specific [place] 1.013 (1.001-1.035) 06/08/16 17:45 Urine Protein 2+ (Negative) H 06/08/16 17:45 Urine Glucose (UA) Negative (Negative) 06/08/16 17:45 Urine Ketones Negative (Negative) 06/08/16 17:45 Urine Blood Large (Negative) H 06/08/16 17:45 Urine Nitrate Negative (Negative) 06/08/16 17:45 Urine Bilirubin Negative (Negative) 06/08/16 17:45 Urine Urobilinogen 2.0 mg/dL (<2.0) 06/08/16 17:45 Ur Leukocyte Esterase Small (Negative) H 06/08/16 17:45 Urine RBC >182 /hpf (0-5) H 06/08/16 17:45 Urine WBC 27 /hpf (0-5) H 06/08/16 17:45 Hyaline Casts 22 /lpf (0-2) H 06/08/16 17:45 Urine Mucus Many /hpf (None) H 06/08/16 17:45 Assessment and Plan Plan: 1. Acute exacerbation with bilateral pleural effusion, respiratory difficulties edema, patient has chronic diastolic heart failure, and Lasix was initially been given cautiously at 40 mg every 12 hrs to relieve him of his congestion and pleural effusion, consult with cardiology and Dr. Michaels from nephrology, we had a long discussion with regards to his wishes and desires which came up for his wishes to be made comfortable with no aggressive treatments and would abandon any intervention, hospice is strongly desired by the patient, family members a POA was at bedside to confirm his wishes, consults were made to hospice with comfort care measures only. Diuretics, morphine, oxygen and benzodiazepines are in place. 2. Acute kidney injury due to acute tubular necrosis with chronic kidney disease stage III and congenital single kidney. Patient will be given 1 L of IV fluid bolus and IV fluids will be discontinued due to history of heart failure. 3. Myeloproliferative disorder. Consult with Dr. Francisco appreciated. Hydrea with be held permanently per the patient's wishes not to intervene for his MDP 4. Chronic atrial fibrillation on long-term anticoagulation with Coumadin, Coreg, lisinopril. 5. Chronic diastolic heart failure. Lasix is being ordered daily. For comfort Cardiology consult. 6. Hypertension on lisinopril 5 mg daily will be held, Coreg 6.25 mg twice a day continue 7. Hypothyroidism on levothyroxine 75 g daily 8. Mild dementia on Aricept 5 mg daily will be discontinued 9. Overactive bladder 10. Hyperuricemia. Continue allopurinol. 11. Asbestosis with pleural plaques 12. Patient only has unilateral kidney 13. DVT prophylaxis patient's on maintenance Coumadin for A. fib 14. Leukocytosis most likely secondary to hematology disorder and sepsis. 15. Splenomegaly with last CT in December 2015 showing 15 cm spleen 16. History of prostate cancer with history of prostatectomy and orchiectomy 17. GI prophylaxis Discharge plan: Return to [facility] with hospice against hospice home
--- NOTE | 2016-06-09 18:36 | P.DS ---
Providers Date of admission: 06/07/16 19:37 Attending physician: Loren Bailey Primary care physician: Loren Bailey Hospital Course: This is an 86-year-old gentleman patient of Dr. Bailey and Dr. Francisco. His food service cashier is Dr. Arevalo. He has underlying history offchronic myeloproliferative disorder, hypothyroidism, prostate cancer, chronic diastolic heart failure, chronic atrial fibrillation, hypertension, asbestosis, congenital single kidney, dementia. Patient was in his usual state of health until a couple days ago when he started having mental status changes. He does have underlying dementia and is always confused and needs direction to complete simple tasks but this worsened. He was last admitted from our facility till secondary to: 1. Metabolic encephalopathy secondary to urinary tract infection and sepsis with history of mild bladder incontinence. 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 Acute kidney injury due to acute tubular necrosis with chronic kidney disease stage III and congenital single kidney. 3. Myeloproliferative disorder. 4. Chronic atrial fibrillation on long-term anticoagulation with Coumadin 5. Chronic diastolic heart failure. 6. Hypertension 7. Hypothyroidism 8. Mild dementia 9. Overactive bladder 10. Hyperuricemia 11. Asbestosis with pleural plaques 12. Patient only has unilateral kidney 13. Leukocytosis most likely secondary to hematology disorder and sepsis. 14. Splenomegaly . He was home at [facility], he gained approximately 10 pounds over the past 4 days after he had received 1 unit of packed red blood cell 5 days prior to admission, also Lasix was given at that time.. He was seen by Dr. Bailey today for follow-up visit from the hospital, he was in respiratory distress, pulse ox was 82% and he was subsequently admitted to the emergency room. He presented to emergency room with increasing shortness of breath, he was found to be in CHF exacerbation with bilateral pleural effusion which is new, 5.1 cm on the right in 2.5 cm in the left, compressive atelectasis, patchy infiltrate within the right upper lobe, family members is at bedside for which they have strongly considered comfort care measures during his last admission however this increasing difficulty this time, the patient wanted to be made hospice with no further intervention his wishes are respected if family members are in agreement by mouth 80 daughter is there to support father's decision. [facility] enrolled today with discharge to home on 06/09 Final Diagnosis 1. Acute exacerbation with bilateral pleural effusion, respiratory difficulties edema, patient has chronic diastolic heart failure, and Lasix was initially been given cautiously at 40 mg every 12 hrs to relieve him of his congestion and pleural effusion, consult with cardiology and Dr. Michaels from nephrology, we had a long discussion with regards to his wishes and desires which came up for his wishes to be made comfortable with no aggressive treatments and would abandon any intervention, hospice is strongly desired by the patient, family members a POA was at bedside to confirm his wishes, consults were made to hospice with comfort care measures only. Diuretics, morphine, oxygen and benzodiazepines are in place. 2. Acute kidney injury due to acute tubular necrosis with chronic kidney disease stage III and congenital single kidney. Patient will be given 1 L of IV fluid bolus and IV fluids will be discontinued due to history of heart failure. 3. Myeloproliferative disorder. Consult with Dr. Francisco appreciated. Hydrea with be held permanently per the patient's wishes not to intervene for his MDP 4. Chronic atrial fibrillation on long-term anticoagulation with Coumadin, Coreg, lisinopril. 5. Chronic diastolic heart failure. Lasix is being ordered daily. For comfort Cardiology consult. 6. Hypertension on lisinopril 5 mg daily will be held, Coreg 6.25 mg twice a day continue 7. Hypothyroidism on levothyroxine 75 g daily 8. Mild dementia on Aricept 5 mg daily will be discontinued 9. Overactive bladder 10. Hyperuricemia. Continue allopurinol. 11. Asbestosis with pleural plaques 12. Patient only has unilateral kidney 13. DVT prophylaxis patient's on maintenance Coumadin for A. fib 14. Leukocytosis most likely secondary to hematology disorder and sepsis. 15. Splenomegaly with last CT in December 2015 showing 15 cm spleen 16. History of prostate cancer with history of prostatectomy and orchiectomy 17. GI prophylaxis Discharge plan: Return to [facility] with hospice thru [facility] Discharge Medication List Levothyroxine Sodium [Levo-T] 75 mcg PO DAILY 02/03/16 [History] HYDROcodone/APAP 5-325MG [[place] 5-325] 1 tab PO Q6HR PRN 02/22/16 [History] Albuterol Nebulized [Ventolin Nebulized] 2.5 mg INHALATION RT-QID 05/29/16 [ History] Baclofen [Lioresal] 10 mg PO BID PRN 05/29/16 [History] Carvedilol [Coreg] 6.25 mg PO BID 05/29/16 [History] Mirtazapine [Remeron] 15 mg PO HS 05/29/16 [History] SILVER sulfADIAZINE CREAM [Silvadene Cream] 1 applic TOPICAL BID PRN 05/29/16 [ History] Furosemide [Lasix] 40 mg PO MOWEFR #0 06/02/16 [Rx] Potassium Chloride ER [K-Dur 20] 10 meq PO MOWEFR #0 06/02/16 [Rx] Furosemide [Lasix] 40 mg PO DAILY tab 06/09/16 [Rx] LORazepam [Ativan] 0.5 mg PO Q6H PRN #30 tab 06/09/16 [Rx] Morphine Oral Soln [Roxanol Oral Soln Conc 20MG/ML] 10 mg PO Q2H PRN #100 ml 06/23 [Rx] Patient Condition at Discharge: Serious Plan - Discharge Summary New Discharge Prescriptions: LORazepam [Ativan] 0.5 mg PO Q6H PRN #30 tab PRN Reason: Agitation Morphine Oral Soln [Roxanol Oral Soln Conc 20MG/ML] 10 mg PO Q2H PRN #100 ml PRN Reason: pain Discharge Medication List Levothyroxine Sodium [Levo-T] 75 mcg PO DAILY 02/03/16 [History] HYDROcodone/APAP 5-325MG [[place] 5-325] 1 tab PO Q6HR PRN 02/22/16 [History] Albuterol Nebulized [Ventolin Nebulized] 2.5 mg INHALATION RT-QID 05/29/16 [ History] Baclofen [Lioresal] 10 mg PO BID PRN 05/29/16 [History] Carvedilol [Coreg] 6.25 mg PO BID 05/29/16 [History] Mirtazapine [Remeron] 15 mg PO HS 05/29/16 [History] SILVER sulfADIAZINE CREAM [Silvadene Cream] 1 applic TOPICAL BID PRN 05/29/16 [ History] Furosemide [Lasix] 40 mg PO MOWEFR #0 06/02/16 [Rx] Potassium Chloride ER [K-Dur 20] 10 meq PO MOWEFR #0 06/02/16 [Rx] Furosemide [Lasix] 40 mg PO DAILY tab 06/09/16 [Rx] LORazepam [Ativan] 0.5 mg PO Q6H PRN #30 tab 06/09/16 [Rx] Morphine Oral Soln [Roxanol Oral Soln Conc 20MG/ML] 10 mg PO Q2H PRN #100 ml 06/23 [Rx] Follow up Appointment(s)/Referral(s): Loren Bailey MD [Primary Care Provider] - 1-2 days Patient Instructions/Handouts: Hospice (DC) Activity/Diet/Wound Care/Special Instructions: [facility]#[phone] Discharge Disposition: HOME WITH HOSPICE
--- NOTE | 2016-06-09 19:35 | PN ---
Patient is seen for follow-up for acute kidney injury. He is currently lying in bed with no respiratory distress. Patient has been voiding. He has been confused and currently has a sitter. It appears that review of labs shows a serum creatinine is higher today at 3.8 mg/dL. On examination, blood pressure is 142/65, heart rate 75 per minute. He is afebrile. Examination of the heart S1 and S2. Examination of the lungs: Bilateral breath sounds are heard. Decreased breath sounds in bases. ABDOMEN: Soft, nontender. Examination of lower extremities shows no evidence of edema. RISK MANAGEMENT ANALYST exam is grossly intact. Labs show sodium 143, potassium 5.5, BUN 65, serum creatinine 3.8. Hemoglobin 8.2 g/dL. There is no evidence of obstruction. Family has decided to proceed with hospice and comfort care measures and patient is being discharged to hospice. ASSESSMENT: 1. Generalized debility. 2. Dementia. 3. Chronic myeloproliferative disorder. 4. History of prostatic carcinoma. 5. Hypertension, maintained on CHELSEY inhibitors prior to admission. 6. Chronic kidney disease stage III solitary functioning kidney. PLAN: Will sign off as patient's CODE STATUS ( ) will sign off, as patient is being discharged to hospice.
[2016-06-11] MEDS ORDERED: ERGOCALCIFEROL 50,000 UNIT CAP PO SCH (23:25)
== END 2016-06-09 19:10 | disposition hospice, home (50) | DRG 871 ==
LOC: EC 17:34 → 4MS4W 19:37
PROVIDERS: ADMIT Internal Medicine; ATTEND Internal Medicine
DX: A41.9 Sepsis, unspecified organism (principal); G93.41 Metabolic encephalopathy; N17.0 Acute kidney failure with tubular necrosis; I50.33 Acute on chronic diastolic (congestive) heart failure; D47.1 Chronic myeloproliferative disease; Q60.0 Renal agenesis, unilateral; N39.0 Urinary tract infection, site not specified; I48.2 Chronic atrial fibrillation; F03.90 Unspecified dementia, unspecified severity, without behavioral disturbance, psychotic disturbance, mood disturbance, and anxiety; E86.0 Dehydration; I13.0 Hypertensive heart and chronic kidney disease with heart failure and stage 1 through stage 4 chronic kidney disease, or unspecified chronic kidney disease; J98.11 Atelectasis; Z51.5 Encounter for palliative care; E87.5 Hyperkalemia; R16.1 Splenomegaly, not elsewhere classified; R32 Unspecified urinary incontinence; I25.10 Atherosclerotic heart disease of native coronary artery without angina pectoris; E79.0 Hyperuricemia without signs of inflammatory arthritis and tophaceous disease; N18.3 Chronic kidney disease, stage 3 (moderate); E03.9 Hypothyroidism, unspecified; N32.81 Overactive bladder; J61 Pneumoconiosis due to asbestos and other mineral fibers; F32.9 Major depressive disorder, single episode, unspecified; D64.9 Anemia, unspecified; R09.02 Hypoxemia; Z85.46 Personal history of malignant neoplasm of prostate; Z90.79 Acquired absence of other genital organ(s); Z87.440 Personal history of urinary (tract) infections; Z87.891 Personal history of nicotine dependence; Z95.5 Presence of coronary angioplasty implant and graft; Z79.01 Long term (current) use of anticoagulants; R62.7 Adult failure to thrive; E86.1 Hypovolemia; I25.2 Old myocardial infarction; Z79.51 Long term (current) use of inhaled steroids; Z79.899 Other long term (current) drug therapy
CPT/HCPCS: 36415; 71020; 71250; 80048; 80053; 81001; 82550; 82553; 83735; 83880; 84100; 84484; 85025; 85610; 85730; 93005; 94640; 99285

== ENCOUNTER 2016-06-11 04:32 | Emergency (ER) | payer MEDICARE ==
[2016-06-11] MEDS ORDERED: SODIUM CHLORIDE 0.9% 2,000 ML IV ONE (04:42)
[2016-06-11 04:48] VITALS: BP 103/51; RESP 16; TEMP 97.6
--- NOTE | 2016-06-11 05:00 | ED ---
General Adult HPI - General Chief complaint: Syncope Stated complaint: Syncope Time Seen by Provider: 06/11/16 04:32 Source: patient, family, EMS, RN notes reviewed Mode of arrival: EMS - History of Present Illness Initial comments: This is a [id number] male who is in hospice at this time apparently got dizzy and let himself down to the floor he was attempting of the bathroom prior to admission. He denies he passed out he's noted have an 86 systolic blood pressure per EMS when he came in this did improve after he was placed in Trendelenburg position. He does have renal failure among other medical problems apparently. He denies any head neck or back pain. No fevers chills or sweats. He did scuff his right great toe medial aspect. No other injuries are reported. - Related Data Home Medications Medication Instructions Recorded Confirmed Levothyroxine Sodium [Levo-T] 75 mcg PO DAILY 02/03/16 06/07/16 HYDROcodone/APAP 5-325MG [[place] 1 tab PO Q6HR PRN 02/22/16 06/07/16 5-325] Albuterol Nebulized [Ventolin 2.5 mg INHALATION RT-QID 05/29/16 06/07/16 Nebulized] Baclofen [Lioresal] 10 mg PO BID PRN 05/29/16 06/07/16 Carvedilol [Coreg] 6.25 mg PO BID 05/29/16 06/07/16 Mirtazapine [Remeron] 15 mg PO HS 05/29/16 06/07/16 SILVER sulfADIAZINE CREAM 1 applic TOPICAL BID PRN 05/29/16 06/07/16 [Silvadene Cream] Previous Rx's Medication Instructions Recorded Furosemide [Lasix] 40 mg PO MOWEFR #0 06/02/16 Potassium Chloride ER [K-Dur 20] 10 meq PO MOWEFR #0 06/02/16 Furosemide [Lasix] 40 mg PO DAILY tab 06/09/16 LORazepam [Ativan] 0.5 mg PO Q6H PRN #30 tab 06/09/16 Morphine Oral Soln [Roxanol Oral 10 mg PO Q2H PRN #100 ml 06/09/16 Soln Conc 20MG/ML] Allergies Allergy/AdvReac Type Severity Reaction Status Date / Time No Known Allergies Allergy Verified 06/07/16 18:23 Review of Systems ROS Statement: Those systems with pertinent positive or pertinent negative responses have been documented in the HPI. ROS Other: All systems not noted in ROS Statement are negative. Past Medical History Past Medical History: Atrial Fibrillation, Blood Disorder, Heart Failure, Hypertension, Myocardial Infarction ([place]), Thyroid Disorder Additional Past Medical History / Comment(s): Chronic myeloproliferative disorder, asbestosis, congenital single kidney, prostate cancer, chronic diastolic heart failure, hypothyroidism Last Myocardial Infarction Date:: 1994 History of Any Multi-Drug Resistant Organisms: None Reported Past Surgical History: Adenoidectomy, Heart Catheterization With Stent, Tonsillectomy Additional Past Surgical History / Comment(s): turp, thyroidectomy , prostatectomy, colonoscopy/polypectomy Past Anesthesia/Blood Transfusion Reactions: No Reported Reaction Additional Past Anesthesia/Blood Transfusion Reaction / Comment(s): blood transfusion-no reaction Date of Last Stent Placement:: unk Past Psychological History: Depression Additional Psychological History / Comment(s): PT LIVES AT [facility] WITH HIS CRISTIAN. RECEIVED HOME CARE SERVICES [facility] Smoking Status: Never smoker Past Alcohol Use History: Occasional Additional Past Alcohol Use History / Comment(s): in past Occasionally smokes a cigar and occ drink- none now. Past Drug Use History: None Reported - Past Family History Mother Family Medical History: Cancer Additional Family Medical History / Comment(s): Breast CA Father Family Medical History: Coronary Artery Disease (CAD) Sister(s) Family Medical History: Blood Disorder, Cancer Additional Family Medical History / Comment(s): Breast CA and blood CA General Exam - General Exam Comments Initial Comments: This a well-developed well-nourished awake alert male General appearance: alert, in no apparent distress Head exam: Present: atraumatic, normocephalic, normal inspection Eye exam: Present: normal appearance, PERRL, EOMI. Absent: scleral icterus, conjunctival injection, periorbital swelling ENT exam: Present: mucous membranes dry Neck exam: Present: normal inspection. Absent: tenderness, meningismus, lymphadenopathy Respiratory exam: Present: normal lung sounds bilaterally. Absent: respiratory distress, wheezes, rales, rhonchi, stridor Cardiovascular Exam: Present: regular rate, normal rhythm, normal heart sounds. Absent: systolic murmur, diastolic murmur, rubs, gallop, clicks GI/Abdominal exam: Present: soft, normal bowel sounds. Absent: distended, tenderness, guarding, rebound, rigid Extremities exam: Present: full ROM, normal capillary refill, other (Avulsion injury approximately 5 mm in diameter noted to the right great toe medial aspect. No active bleeding at this time no foreign body). Absent: tenderness, pedal edema, joint swelling, calf tenderness Back exam: Present: normal inspection Neurological exam: Present: alert, oriented X3, CN II-XII intact Psychiatric exam: Present: normal affect, normal mood Skin exam: Present: warm, dry, intact, normal color. Absent: rash Course Vital Signs 06/11/16 04:43 Temperature 97.6 F Pulse Rate 97 Respiratory 16 Rate Blood Pressure 103/51 - Reevaluation(s) Reevaluation #1: 06/11/16 05:00 Power of cured meat packing supervisor was contacted and per the power of cured meat packing supervisor no treatment has been rendered patient be returned to his facility. Disposition Clinical Impression: Near syncope, Dehydration, Hypotensive episode Disposition: HOME SELF-CARE Condition: Stable
[2016-06-11 06:04] VITALS: PULSE 91
== END 2016-06-11 06:50 | disposition home or self-care (01) ==
LOC: EC 04:32
DX: I95.9 Hypotension, unspecified (principal); S91.111A Laceration without foreign body of right great toe without damage to nail, initial encounter; E86.0 Dehydration; R55 Syncope and collapse; I25.2 Old myocardial infarction; I11.0 Hypertensive heart disease with heart failure; I50.32 Chronic diastolic (congestive) heart failure; E03.9 Hypothyroidism, unspecified; F32.9 Major depressive disorder, single episode, unspecified; Z95.5 Presence of coronary angioplasty implant and graft; Z79.899 Other long term (current) drug therapy; Z87.891 Personal history of nicotine dependence; X58.XXXA Exposure to other specified factors, initial encounter
CPT/HCPCS: 99284